=== PATIENT | male | born 1985 | race American Indian/Alaskan Native ===

== ENCOUNTER 2017-08-18 10:29 | Emergency (ER) | payer OTHER ==
[2017-08-18 10:35] VITALS: BP 134/81
[2017-08-18] MEDS ORDERED: Ondansetron 4 MG/2 ML SDV IVPUSH ONE (10:47)
[2017-08-18] MEDS ORDERED: Sodium Chloride 0.9% 1,000 ML IV SCH (11:00)
[2017-08-18] MEDS ORDERED: HYDROmorphone 1 MG/ML Syringe IVPUSH ONE (11:04)
--- NOTE | 2017-08-18 11:10 | EDM.PDOC ---
ED HPI GENERAL MEDICAL PROBLEM - General Chief Complaint: Abdominal Pain Stated Complaint: [facility] Time Seen by Provider: 08/18/17 10:55 Source of Information: Reports: Patient, Old Records (previous ER and hospital records) History Limitations: Reports: No Limitations - History of Present Illness INITIAL COMMENTS - FREE TEXT/NARRATIVE: 31-year-old male arrives from [facility] ambulance service for evaluation and treatment of abdominal pain. Reports abdominal pain has been present for the last 3 days. He states he did not seek help immediately as he knew what was and attempted to control his pain with diet. He states that he is only drink. Liquids yesterday not anything having and eats. He reports associated symptoms of nausea and vomiting. Reports that the abdominal pain is greatest in the lower abdomen and into the left flank. Also has abdominal pain present in the epigastric area. He attributes this to nausea and vomiting. Feels that he is constipated and has not had a bowel movement in several days. Patient has a history of diverticulitis. He feels he is having a flare of his diverticulitis today. States he has never had a colonoscopy. No previous surgeries to his abdomen. Review the patient's records showed that he has been seen in the ER on 3 other occasions for abdominal pain. He was treated twice for diverticulitis. He was admitted on one occasion. He is also known to have gallstones as seen on ultrasound. He has not has gallbladder out as instructed. He has not had an upper endoscopy or colonoscopy as instructed. Duration: Day(s): (3) Location: Reports: Abdomen Abdominal Pain Score (Numeric/FACES): 7 - Related Data Allergies Allergy/AdvReac Type Severity Reaction Status Date / Time No Known Allergies Allergy Verified 08/18/17 10:35 Home Meds: Home Meds Acetaminophen/oxyCODONE [Percocet 325-5 MG] 1 tab PO Q4HR PRN #20 tab 08/18/17 [ Rx] Levofloxacin [Levaquin] 750 mg PO DAILY #9 tab 08/18/17 [Rx] metroNIDAZOLE [Flagyl] 500 mg PO Q8H #29 tab 08/18/17 [Rx] Past Medical History - Past Health History Medical/Surgical History: Denies Medical/Surgical History Gastrointestinal History: Reports: Diverticulosis, Helicobacter Pylori Other Gastrointestinal History: gallstones-incidentally noted Endocrine/Metabolic History: Reports: Obesity/BMI 30+ - Past Surgical History Other Surgical History Comment: Patient denies previous surgical procedures. Social & Family History - Family History Family Medical History: Noncontributory - Tobacco Use Smoking Status *Q: Current Every Day Smoker Years of Tobacco use: 15 Packs/Tins Daily: 0.5 Used Tobacco, but Quit: Yes Month Tobacco Last Used: november Second Hand Smoke Exposure: No - Recreational Drug Use Recreational Drug Use: Yes Drug Use in Last 12 Months: Yes Recreational Drug Type: Reports: Marijuana/Hashish Recreational Drug Use Frequency: Rarely - Living Situation & Occupation Living situation: Reports: Single, Alone Occupation: Other ED ROS GENERAL - Review of Systems Review Of Systems: See Below Constitutional: Denies: Fever GI/Abdominal: Reports: Abdominal Pain, Constipation, Nausea, Vomiting : Reports: Frequency, Other (reports strong urine odor). Denies: Dysuria ED EXAM, GI/ABD - Physical Exam Exam: See Below Exam Limited By: No Limitations General Appearance: Alert, WD/WN, Moderate Distress, Obese Throat/Mouth: Normal Inspection, Normal Voice, No Airway Compromise Respiratory/Chest: No Respiratory Distress, Lungs Clear, Normal Breath Sounds Cardiovascular: Normal Peripheral Pulses, Regular Rate, Rhythm, No Murmur GI/Abdominal Exam: Soft, Tender (generalized, greatest in the left lower quadrant), Other (decreased bowel sounds) Neurological: Alert, Oriented, Normal Cognition Psychiatric: Normal Affect, Normal Mood Skin Exam: Warm, Dry, Normal Color Course - Vital Signs Last Recorded V/S: Last Vital Signs Temp 36.8 C 08/18/17 10:33 Pulse 73 08/18/17 10:33 Resp 18 08/18/17 10:33 BP 134/81 08/18/17 10:33 Pulse Ox 100 08/18/17 10:33 - Orders/Labs/Meds Orders: Active Orders 24 hr Category Date Time Status Insert Pool Catheter [Insert Urinary Catheter] [OM.PC] Care 08/18/17 14:45 Ordered Q24H Urinary Catheter Assessment [RC] ASDIRECTED Care 08/18/17 14:34 Active CULTURE URINE [RM] Stat Lab 08/18/17 13:40 Received Labs: Laboratory Tests 08/18/17 08/18/17 08/18/17 Range/Units 10:35 10:35 13:40 WBC 16.19 H (4.23-9.07) K/mm3 RBC 5.53 (4.63-6.08) M/mm3 Hgb 14.8 (13.7-17.5) gm/L Hct 44.8 (40.1-51.0) % MCV 81.0 (79.0-92.2) fl MCH 26.8 (25.7-32.2) pg MCHC 33.0 (32.2-35.5) g/dl RDW Std Deviation 39.5 (35.1-43.9) fL Plt Count 262 (163-337) K/mm3 MPV 10.9 (9.4-12.3) fl Neutrophils % (Manual) 66 H (40-60) % Band Neutrophils % 0 (0-10) % Lymphocytes % (Manual) 25 (20-40) % Atypical Lymphs % 0 % Monocytes % (Manual) 7 (2-10) % Eosinophils % (Manual) 2 (0.8-7.0) % Basophils % (Manual) 0 L (0.2-1.2) Platelet Estimate Adequate RBC Morph Comment Normal Sodium 141 (136-145) mEq/L Potassium 4.1 (3.5-5.1) mEq/L Chloride 106 (98-107) mEq/L Carbon Dioxide 27 (21-32) mEq/L Anion Gap 12.1 (5-15) BUN 13 (7-18) mg/dL Creatinine 0.9 (0.7-1.3) mg/dL Est Cr Clr Drug Dosing 134.40 mL/min Estimated GFR (MDRD) > 60 (>60) mL/min BUN/Creatinine Ratio 14.4 (14-18) Glucose 112 H (74-106) mg/dL Calcium 9.1 (8.5-10.1) mg/dL Total Bilirubin 0.5 (0.2-1.0) mg/dL AST 16 (15-37) U/L ALT 19 (16-63) U/L Alkaline Phosphatase 103 (46-116) U/L C-Reactive Protein 1.5 H* (<1.0) mg/dL Total Protein 8.7 H (6.4-8.2) g/dl Albumin 3.6 (3.4-5.0) g/dl Globulin 5.1 gm/dL Albumin/Globulin Ratio 0.7 L (1-2) Amylase 47 (25-115) U/L Lipase 79 (73-393) U/L Urine Color Yellow (Yellow) Urine Appearance Cloudy H (Clear) Urine pH 8.0 (5.0-8.0) Ur Specific [place] 1.020 (1.005-1.030) Urine Protein 2+ H (Negative) Urine Glucose (UA) Negative (Negative) Urine Ketones 1+ H (Negative) Urine Occult Blood Trace-lysed H (Negative) Urine Nitrite Negative (Negative) Urine Bilirubin Negative (Negative) Urine Urobilinogen 1.0 (0.2-1.0) Ur Leukocyte Esterase 1+ H (Negative) Urine RBC 0-5 (0-5) /hpf Urine WBC 40-50 H (0-5) /hpf Ur Epithelial Cells 0-5 (0-5) /hpf Amorphous Sediment Moderate H (NOT SEEN) /hpf Urine Bacteria Many H (FEW) /hpf Urine Mucus Few (FEW) /hpf Meds: Medications Discontinued Medications Generic Name Dose Route Start Last Admin Trade Name Freq PRN Reason Stop Dose Admin Diatrizoate Meglum/Diatrizoate Sod 90 ml 08/18/17 11:59 08/18/17 12:38 Gastrografin 37% PO 08/18/17 12:00 90 ml ONETIME ONE Administration Diatrizoate Meglumine 400 ml 08/18/17 15:00 08/18/17 15:56 Cystografin IURETH 08/18/17 15:01 400 ml ONETIME ONE Administration Hydromorphone HCl 1 mg 08/18/17 11:04 08/18/17 11:13 Dilaudid IVPUSH 08/18/17 11:05 1 mg ONETIME ONE Administration Sodium Chloride 1,000 mls @ 125 mls/hr 08/18/17 11:00 08/18/17 10:53 Normal Saline IV 125 mls/hr ASDIRECTED ARNOLD Administration Levofloxacin/Dextrose 750 mg/ 150 mls @ 100 mls/hr 08/18/17 12:52 08/18/17 13 :01 Premix IV 08/18/17 14:21 100 mls/hr ONETIME ONE Administration Metronidazole 500 mg/ Premix 100 mls @ 100 mls/hr 08/18/17 12:52 08/18/17 12: 59 IV 08/18/17 13:51 100 mls/hr ONETIME ONE Administration Iopamidol 150 ml 08/18/17 11:59 08/18/17 12:38 Isovue-300 (61%) IVPUSH 08/18/17 12:00 115 ml ONETIME ONE Administration Lidocaine HCl 10 ml 08/18/17 14:29 08/18/17 14:51 Xylocaine 2% Jelly MUCMEM 08/18/17 14:30 10 ml ONETIME ONE Administration Ondansetron HCl 4 mg 08/18/17 10:47 08/18/17 10:53 Zofran IVPUSH 08/18/17 10:48 4 mg ONETIME ONE Administration Sodium Chloride 10 ml 08/18/17 11:59 08/18/17 12:39 Saline Flush FLUSH 08/18/17 12:00 10 ml ONETIME ONE Administration - Radiology Interpretation Free Text/Narrative:: CT abdomen and pelvis Technique: Multiple axial sections were obtained from above the dome of the diaphragm inferiorly through the pubic symphysis. Intravenous and oral contrast was utilized. Delayed images were obtained through the bladder. Comparison: Prior CT abdomen and pelvis exam of 02/04/16. Findings: Inflammatory change is identified around a portion of the sigmoid colon. Diverticuli are seen within the sigmoid colon and findings are felt compatible with diverticulitis. There is air within the bladder which may be the result of a diverticular fistula. Visualized lung bases show nothing acute. Liver shows no focal parenchymal abnormality. Spleen appears normal limits. Adrenal glands show no nodule. Gallbladder contains no calcified gallstones. Kidneys show symmetric contrast enhancement without hydronephrosis or mass. Pancreas is within normal limits. Aorta shows no aneurysmal dilatation. No retroperitoneal adenopathy or mesenteric abnormalities are seen. Appendix is seen which is normal. No additional pelvic abnormality is seen. Impression: 1. Findings compatible with diverticulitis. Air within the bladder possibly caused by diverticular fistula. 2. No additional abnormality is identified on CT study of the abdomen and pelvis. - Re-Assessments/Exams Free Text/Narrative Re-Assessment/Exam: 08/18/17 13:04 Pain and nausea improved. Awaiting formal radiology read. Levaquin and flagyl ordered to treat for diverticulitis. 08/18/17 13:40 Patient is currently receiving the IV Levaquin. Radiology report returned. Findings are concerning for a fistula as there is free air in the bladder. Discussed this with the patient. He has not been catheterized recently. He has not yet given us a urine sample. Plan will be I will have him give us a urine sample and I will discuss case with the urologist in [place]. 08/18/17 14:[address] Persaud, urology in [place]. He also we culture the urine and obtain a CT cystogram. Dr. Ashby is not here at this time and is unable to perform a CT cystogram. Dr. Membreno spoke with Dr. Ashby. We will obtain a CT cystogram and AP and lateral views of the pelvis. Case discussed with Dr. Banda. He agrees with out work up thus far recommends and treating with antibiotics and follow-up with him for a colonsopy. 08/18/17 17:[address] Persaud back with results. Agrees with treatment plan. Will look at images and notify us if he sees anything concerning. Will plan to discharge patient home at this time. Departure - Departure Time of Disposition: 17:04 Disposition: Home, Self-Care 01 Condition: Fair Clinical Impression: Acute diverticulitis - Discharge Information Prescriptions: Acetaminophen/oxyCODONE [Percocet 325-5 MG] 1 tab PO Q4HR PRN #20 tab PRN Reason: Pain Levofloxacin [Levaquin] 750 mg PO DAILY #9 tab metroNIDAZOLE [Flagyl] 500 mg PO Q8H #29 tab Instructions: Diverticulitis Referrals: Misha Soares DO [Primary Care Provider] - Homer Banda MD [Physician] - Forms: ED Department Discharge Additional Instructions: You were given medication ER that can affect your ability to drive and operate machinery. Do not drive or operate machinery within 12 hours of taking prescription narcotic pain medication. Percocet 1-2 tabs every 4-6 hours as needed for severe pain. Do not drive or operate machinery within 12 hours of taking Percocet. Percocet can be habit- forming, I recommend you take as few these as needed to control your pain . Levaquin 1 tablet daily for 10 days. First dose was given in the ED. Start your perception tomorrow. Flagyl 1 tab 3 times a day for 10 days. first dose given here in the ER. Follow-up with Dr. Banda. Call [phone] Banda. Please return to the ER if your symptoms change or worsen. - My Orders Last 24 Hours: My Active Orders 08/18/17 13:40 CULTURE URINE [RM] Stat 08/18/17 14:34 Urinary Catheter Assessment [RC] ASDIRECTED 08/18/17 14:45 Insert Pool Catheter [Insert Urinary Catheter] [OM.PC] Q24H - Assessment/Plan Last 24 Hours: My Active Orders 08/18/17 13:40 CULTURE URINE [RM] Stat 08/18/17 14:34 Urinary Catheter Assessment [RC] ASDIRECTED 08/18/17 14:45 Insert Pool Catheter [Insert Urinary Catheter] [OM.PC] Q24H
[2017-08-18] MEDS ORDERED: Sodium Chloride 0.9% 10 ML Syringe FLUSH ONE (11:59)
[2017-08-18] MEDS ORDERED: Iopamidol 612 MG/ML 150 ML Bottle IVPUSH ONE (11:59)
[2017-08-18] MEDS ORDERED: Diatrizoate Meglumine/Diatrizoate Sodium 37% 120 ML Bottle PO ONE (11:59)
[2017-08-18] MEDS ORDERED: Levofloxacin/Dextrose 5%-Water 750 MG in Premix Bag 1 BAG IV ONE (12:52)
[2017-08-18] MEDS ORDERED: metroNIDAZOLE/Normal Saline 500 MG in Premix Bag 1 BAG IV ONE (12:52)
--- NOTE | 2017-08-18 14:23 | CT ---
CT abdomen and pelvis Technique: Multiple axial sections were obtained from above the dome of the diaphragm inferiorly through the pubic symphysis. Intravenous and oral contrast was utilized. Delayed images were obtained through the bladder. Comparison: Prior CT abdomen and pelvis exam of 02/04/16. Findings: Inflammatory change is identified around a portion of the sigmoid colon. Diverticuli are seen within the sigmoid colon and findings are felt compatible with diverticulitis. There is air within the bladder which may be the result of a diverticular fistula. Visualized lung bases show nothing acute. Liver shows no focal parenchymal abnormality. Spleen appears normal limits. Adrenal glands show no nodule. Gallbladder contains no calcified gallstones. Kidneys show symmetric contrast enhancement without hydronephrosis or mass. Pancreas is within normal limits. Aorta shows no aneurysmal dilatation. No retroperitoneal adenopathy or mesenteric abnormalities are seen. Appendix is seen which is normal. No additional pelvic abnormality is seen. Impression: 1. Findings compatible with diverticulitis. Air within the bladder possibly caused by diverticular fistula. 2. No additional abnormality is identified on CT study of the abdomen and pelvis. Diagnostic code #5
[2017-08-18] MEDS ORDERED: Lidocaine 2% Jelly 10 ML Urojet MUCMEM ONE (14:29)
[2017-08-18] MEDS ORDERED: DIATRIZOATE MEGLUMINE IURETH ONE (15:00)
[2017-08-18] MEDS ORDERED: WATER FOR IRRIGATION STERILE ONE (15:00)
[2017-08-18] MEDS ORDERED: Water For Irrigation,Sterile 1,000 ML Container SCH (16:00)
--- NOTE | 2017-08-18 16:13 | CR ---
Pelvis: 3 views of the pelvis are obtained. Study shows placement of contrast into the bladder. As mentioned on CT report, no extravasation of any contrast from the bladder is seen. Diagnostic code #2
--- NOTE | 2017-08-18 16:33 | CT ---
CT pelvis Technique: Multiple axial sections were obtained from above the iliac crests inferiorly to the pubic symphysis. Pool catheter is in place. Contrast noted within the bladder. Findings: Diverticulosis is again seen within the sigmoid colon. Air noted within the bladder. There is soft tissue protrusion into the dome of the bladder with a small amount of extraluminal gas being seen with more soft tissue inflammatory change extending to the sigmoid colon. Contrast noted within the sigmoid colon although uncertain if this is due to contrast from the bladder as there is contrast from oral administration from previous CT being seen in the same region. 2 view plain film study with contrast placed in the bladder does not show any extravasation from the bladder. Impression: 1. Findings still remain suspicious for a diverticular fistula as described above, however no contrast is seen to extend into this fistula to confirm. Limited barium enema study could be considered in the a.m. to further evaluate. Diagnostic code #3
== END 2017-08-18 17:25 | disposition home or self-care (01) ==
LOC: JD.ED 10:29
DX: K57.92 Diverticulitis of intestine, part unspecified, without perforation or abscess without bleeding (principal); F17.210 Nicotine dependence, cigarettes, uncomplicated
CPT/HCPCS: 36415; 51702; 72170; 72192; 74177; 80053; 81001; 82150; 83690; 85025; 86140; 87086; 96361; 96365; 96366; 96367; 96375; 99285; J1170; J1956; J2405; J7040; J7050; Q9958; Q9963; Q9967; 99284

== ENCOUNTER 2017-08-20 18:14 | Inpatient (IN) | payer OTHER ==
[2017-08-20] MEDS ORDERED: Sodium Chloride 0.9% 1,000 ML IV ONE ×2 (19:27→20:59)
--- NOTE | 2017-08-20 20:06 | EDM.PDOC ---
ED HPI GENERAL MEDICAL PROBLEM - General Chief Complaint: Abdominal Pain Stated Complaint: [facility] Time Seen by Provider: 08/20/17 19:15 Source of Information: Reports: Patient History Limitations: Reports: No Limitations - History of Present Illness INITIAL COMMENTS - FREE TEXT/NARRATIVE: This is a 31-year-old male. He was seen here on Wednesday for abdominal pain and diagnosed with an acute diverticulitis with a white count of 16. At the time to do the CT scan of his abdomen and there was a question as to whether he might have a diverticular fistula into the bladder since the bladder had air. Studies were done to determine if this was the case with CT cystogram they did not confirm a diverticular fistula. He was given Levaquin and Flagyl in the ER and then was sent home on Levaquin and Flagyl and Percocet. The patient states he has not been able to keep any fluids down or his medicines down since 8 AM this morning. He's been having increasing left lower quadrant and mid lower abdomen pain and he comes back to the ER for evaluation. He also states he has not been able to have a bowel movement since he left the ER 2 days ago but he's been having the nausea and vomiting. Before arrival to the ER he was given some Dilaudid IV and some Zofran that diminished his pain considerably before he arrived to the ER. He denies any fever at least documented though he's had some chills at times. He has been urinating but is been decreased today he indicates. It should be noted he tried to eat a club sandwich this afternoon and vomited back up. 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/IO, Other (see below) Other Treatments PRISON GUARD SUPERVISOR: IVF, dilaudid, zofran below umbilical/groin area Pain Score (Numeric/FACES): 3 - Related Data Allergies Allergy/AdvReac Type Severity Reaction Status Date / Time No Known Allergies Allergy Verified 08/20/17 18:28 Home Meds: Home Meds Acetaminophen/oxyCODONE [Percocet 325-5 MG] 1 tab PO Q4HR PRN #20 tab 08/18/17 [ Rx] metroNIDAZOLE [Flagyl] 500 mg PO Q8H #29 tab 08/18/17 [Rx] Past Medical History - Past Health History Medical/Surgical History: Denies Medical/Surgical History Gastrointestinal History: Reports: Diverticulosis, Helicobacter Pylori Other Gastrointestinal History: gallstones-incidentally noted Musculoskeletal History: Reports: Back Pain, Chronic Endocrine/Metabolic History: Reports: Obesity/BMI 30+ - Past Surgical History Other Surgical History Comment: Patient denies previous surgical procedures. Social & Family History - Family History Family Medical History: Noncontributory - Tobacco Use Smoking Status *Q: Current Some Day Smoker Years of Tobacco use: 5 Packs/Tins Daily: 0.1 Used Tobacco, but Quit: Yes Month Tobacco Last Used: november Second Hand Smoke Exposure: No - Caffeine Use Caffeine Use: Reports: None - Recreational Drug Use Recreational Drug Use: Yes Drug Use in Last 12 Months: Yes Recreational Drug Type: Reports: Marijuana/Hashish Recreational Drug Use Frequency: Daily Recreational Drug Last Use: 08/20/17 - Living Situation & Occupation Living situation: Reports: Single, Alone Occupation: Other ED ROS GENERAL - Review of Systems Review Of Systems: See Below Constitutional: Reports: Chills, Malaise. Denies: Fever HEENT: Reports: No Symptoms Respiratory: Denies: Shortness of Breath, Cough Cardiovascular: Reports: No Symptoms Endocrine: Reports: No Symptoms GI/Abdominal: Reports: Abdominal Pain, Anorexia, Nausea, Vomiting. Denies: Constipation, Diarrhea : Reports: No Symptoms Musculoskeletal: Reports: No Symptoms Skin: Reports: No Symptoms Neurological: Reports: No Symptoms Psychiatric: Reports: No Symptoms Hematologic/Lymphatic: Reports: No Symptoms ED EXAM, GI/ABD - Physical Exam Exam: See Below Exam Limited By: No Limitations General Appearance: Alert, WD/WN, No Apparent Distress Eyes: Bilateral: Normal Appearance Ears: Normal External Exam, Normal Canal, Normal TMs Nose: Normal Inspection Throat/Mouth: Normal Inspection, Normal Lips, Normal Oropharynx, Normal Voice, No Airway Compromise Head: Normocephalic Neck: Supple Respiratory/Chest: No Respiratory Distress, Lungs Clear, Normal Breath Sounds Cardiovascular: Regular Rate, Rhythm, No Murmur GI/Abdominal Exam: Soft, No Organomegaly, No Distention, Tender, Other (There are decreased bowel sounds noted, he is tender in the left lower quadrant but there is no rebound he is also tender midline down over the bladder area minimal right lower quadrant soreness no upper abdominal soreness noted) Back Exam: Full Range of Motion Extremities: Normal Inspection, Normal Range of Motion Neurological: Alert, Oriented Psychiatric: Normal Affect, Normal Mood Skin Exam: Warm, Dry Course - Vital Signs Last Recorded V/S: Last Vital Signs Temp 97.6 F 08/20/17 18:20 Pulse 62 08/20/17 18:20 Resp 18 08/20/17 18:20 BP 121/66 08/20/17 18:20 Pulse Ox 95 08/20/17 18:20 - Orders/Labs/Meds Orders: Active Orders 24 hr Category Date Time Status Ambulate [RC] QID Care 08/20/17 22:50 Active Height and Weight [RC] DAILY Care 08/20/17 22:38 Active Intake and Output [RC] QSHIFT Care 08/20/17 22:39 Active Oxygen Therapy [RC] PRN Care 08/20/17 22:38 Active RT Aerosol Therapy [RC] ASDIRECTED Care 08/20/17 22:40 Active Up With Assistance [RC] ASDIRECTED Care 08/20/17 22:38 Active Up ad Tiffany [RC] ASDIRECTED Care 08/20/17 22:38 Active VTE/DVT Education [RC] PER UNIT ROUTINE Care 08/20/17 22:38 Active Vital Signs [RC] Q4H Care 08/20/17 22:38 Active Consult to Pulpit Operator [CONS] Routine Cons 08/20/17 22:41 Active Nothing per Oral Now Diet [DIET] Diet 08/20/17 Dinner Active Abdomen 2V AP Flat Upright [CR] Stat Exams 08/20/17 19:27 Taken BASIC METABOLIC PANEL,BMP [CHEM] AM Lab 08/21/17 05:11 Ordered BASIC METABOLIC PANEL,BMP [CHEM] AM Lab 08/22/17 05:11 Ordered BASIC METABOLIC PANEL,BMP [CHEM] AM Lab 08/23/17 05:11 Ordered BASIC METABOLIC PANEL,BMP [CHEM] AM Lab 08/24/17 05:11 Ordered BASIC METABOLIC PANEL,BMP [CHEM] AM Lab 08/25/17 05:11 Ordered C-REACTIVE PROTEIN [CHEM] AM Lab 08/21/17 05:11 Ordered C-REACTIVE PROTEIN [CHEM] AM Lab 08/22/17 05:11 Ordered C-REACTIVE PROTEIN [CHEM] AM Lab 08/23/17 05:11 Ordered C-REACTIVE PROTEIN [CHEM] AM Lab 08/24/17 05:11 Ordered C-REACTIVE PROTEIN [CHEM] AM Lab 08/25/17 05:11 Ordered CBC WITH AUTO DIFF [HEME] AM Lab 08/21/17 05:11 Ordered CBC WITH AUTO DIFF [HEME] AM Lab 08/22/17 05:11 Ordered CBC WITH AUTO DIFF [HEME] AM Lab 08/23/17 05:11 Ordered CBC WITH AUTO DIFF [HEME] AM Lab 08/24/17 05:11 Ordered CBC WITH AUTO DIFF [HEME] AM Lab 08/25/17 05:11 Ordered CULTURE BLOOD [BC] Stat Lab 08/20/17 21:12 Received CULTURE BLOOD [BC] Stat Lab 08/20/17 21:23 Received MAGNESIUM [CHEM] AM Lab 08/21/17 05:11 Ordered MAGNESIUM [CHEM] AM Lab 08/22/17 05:11 Ordered MAGNESIUM [CHEM] AM Lab 08/23/17 05:11 Ordered MAGNESIUM [CHEM] AM Lab 08/24/17 05:11 Ordered MAGNESIUM [CHEM] AM Lab 08/25/17 05:11 Ordered Acetaminophen [Tylenol] Med 08/20/17 22:38 Active 650 mg PO Q4H PRN Albuterol/Ipratropium [DuoNeb 3.0-0.5 MG/3 ML] Med 08/20/17 22:38 Active 3 ml NEB Q4H PRN Bisacodyl [Dulcolax] Med 08/20/17 22:38 Active 5 mg PO DAILY PRN Dextrose 5%-0.9% NaCl with KCl [D5 NS with 20 mEq KCl] Med 08/20/17 22:45 Active 1,000 ml IV ASDIRECTED Docusate Sodium/Sennosides [Senna Plus] Med 08/20/17 22:38 Active 1 tab PO BID PRN Enoxaparin [Lovenox] Med 08/21/17 09:00 Active 40 mg SUBCUT DAILY HYDROmorphone [Dilaudid] Med 08/20/17 22:38 Active 1 mg IVPUSH Q6H PRN LORazepam [Ativan] Med 08/20/17 22:38 Active 1 mg IV Q6H PRN LORazepam [Ativan] Med 08/20/17 22:43 Active 2 mg IVPUSH Q4H PRN Levofloxacin/Dextrose 5%-Water [Levaquin in D5W 500 MG/ Med 08/21/17 09:00 Ordered 100 ML] 500 mg Premix Bag 1 bag IV Q24H Magnesium Hydroxide [Milk of Magnesia] Med 08/20/17 22:38 Active 30 ml PO Q12H PRN Magnesium Rep Pharmacy to Dose [Pharmacy to Dose - Med 08/20/17 22:45 Ordered Magnesium Replacement] 1 dose .XX ASDIRECTED Metoprolol Tartrate [Lopressor] Med 08/20/17 22:43 Active 5 mg IVPUSH Q4H PRN Nicotine [Habitrol] Med 08/21/17 09:00 Active 21 mg TRDERM DAILY Ondansetron [Zofran] Med 08/20/17 22:38 Active 4 mg IV Q4H PRN Polyethylene Glycol 3350 [MiraLAX] Med 08/20/17 22:38 Active 17 gm PO DAILY PRN Potassium Rep Pharmacy to Dose [Pharmacy to Dose - Med 08/20/17 22:45 Ordered Potassium Replacement] 1 dose .XX ASDIRECTED Promethazine [Phenergan] 12.5 mg Med 08/20/17 22:38 Active Sodium Chloride 0.9% [Normal Saline] 50 ml IV Q6H Saccharomyces Boulardii [Florastor] Med 08/21/17 09:00 Ordered 250 mg PO BID Temazepam [Restoril] Med 08/20/17 22:38 Active 30 mg PO BEDTIME PRN hydrALAZINE [Apresoline] Med 08/20/17 22:43 Active 20 mg IVPUSH Q4H PRN metroNIDAZOLE/Normal Saline [Flagyl 500 MG in NS 100 ML Med 08/21/17 05:30 Ordered ] 500 mg Premix Bag 1 bag IV Q8H oxyCODONE Med 08/20/17 22:38 Active 5 mg PO Q4H PRN Blood Culture x2 Reflex Set [OM.PC] Stat Oth 08/20/17 20:27 Ordered Resuscitation Status Routine Resus Stat 08/20/17 22:38 Ordered Medication Orders Acetaminophen (Tylenol) 650 mg PO Q4H PRN PRN Reason: Pain (Mild 1-3)/fever Albuterol/Ipratropium (Duoneb 3.0-0.5 Mg/3 Ml) 3 ml NEB Q4H PRN PRN Reason: Shortness Of Breath/wheezing Bisacodyl (Dulcolax) 5 mg PO DAILY PRN PRN Reason: Constipation Enoxaparin Sodium (Lovenox) 40 mg SUBCUT DAILY ARNOLD Hydralazine HCl (Apresoline) 20 mg IVPUSH Q4H PRN PRN Reason: Hypertension Hydromorphone HCl (Dilaudid) 1 mg IVPUSH Q6H PRN PRN Reason: Pain (severe 7-10) Promethazine HCl 12.5 mg/ (Sodium Chloride) 50.5 mls @ 100 mls/hr IV Q6H PRN PRN Reason: Nausea/Vomiting Potassium Chloride/Dextrose/Sod Cl (D5 Ns With 20 Meq Kcl) 1,000 mls @ 125 mls/ hr IV ASDIRECTED ARNOLD Levofloxacin/Dextrose 500 mg/ (Premix) 100 mls @ 100 mls/hr IV Q24H ARNOLD Metronidazole 500 mg/ Premix 100 mls @ 100 mls/hr IV Q8H ARNOLD Lorazepam (Ativan) 1 mg IV Q6H PRN PRN Reason: Anxiety Lorazepam (Ativan) 2 mg IVPUSH Q4H PRN PRN Reason: Seizures Magnesium Hydroxide (Milk Of Magnesia) 30 ml PO Q12H PRN PRN Reason: Constipation Magnesium Sulfate (Pharmacy To Dose - Magnesium Replacement) 1 dose .XX ASDIRECTED [facility] Metoprolol Tartrate (Lopressor) 5 mg IVPUSH Q4H PRN PRN Reason: Tachycardia Nicotine (Habitrol) 21 mg TRDERM DAILY [facility] Ondansetron HCl (Zofran) 4 mg IV Q4H PRN PRN Reason: Nausea/Vomiting Oxycodone HCl (Oxycodone) 5 mg PO Q4H PRN PRN Reason: Pain (moderate 4-6) Polyethylene Glycol (Miralax) 17 gm PO DAILY PRN PRN Reason: Constipation Potassium Chloride (Pharmacy To Dose - Potassium Replacement) 1 dose .XX ASDIRECTED [facility] Saccharomyces Boulardii (Florastor) 250 mg PO BID ARNOLD Senna/Docusate Sodium (Senna Plus) 1 tab PO BID PRN PRN Reason: Constipation Temazepam (Restoril) 30 mg PO BEDTIME PRN PRN Reason: Sleep Labs: Laboratory Tests 08/20/17 08/20/17 08/20/17 Range/Units 19:52 19:52 19:52 WBC 13.72 H (4.23-9.07) K/mm3 RBC 5.03 (4.63-6.08) M/mm3 Hgb 13.9 (13.7-17.5) gm/L Hct 40.9 (40.1-51.0) % MCV 81.3 (79.0-92.2) fl MCH 27.6 (25.7-32.2) pg MCHC 34.0 (32.2-35.5) g/dl RDW Std Deviation 38.8 (35.1-43.9) fL Plt Count 268 (163-337) K/mm3 MPV 10.7 (9.4-12.3) fl Neut % (Auto) 87.3 H (34.0-67.9) % Lymph % (Auto) 8.7 L (21.8-53.1) % Titus % (Auto) 3.5 L (5.3-12.2) % Eos % (Auto) 0 L (0.8-7.0) Baso % (Auto) 0.1 (0.1-1.2) % Neut # (Auto) 11.98 H (1.78-5.38) K/mm3 Lymph # (Auto) 1.20 L (1.32-3.57) K/mm3 Titus # (Auto) 0.48 (0.30-0.82) K/mm3 Eos # (Auto) 0.00 L (0.04-0.54) K/mm3 Baso # (Auto) 0.01 (0.01-0.08) K/mm3 Manual Slide Review Normal smear Sodium 139 (136-145) mEq/L Potassium 3.6 (3.5-5.1) mEq/L Chloride 105 (98-107) mEq/L Carbon Dioxide 26 (21-32) mEq/L Anion Gap 11.6 (5-15) BUN 9 (7-18) mg/dL Creatinine 0.7 (0.7-1.3) mg/dL Est Cr Clr Drug Dosing 172.80 mL/min Estimated GFR (MDRD) > 60 (>60) mL/min BUN/Creatinine Ratio 12.9 L (14-18) Glucose 107 H (74-106) mg/dL Lactic Acid (0.4-2.0) mmol/L Calcium 8.8 (8.5-10.1) mg/dL Total Bilirubin 0.4 (0.2-1.0) mg/dL AST 15 (15-37) U/L ALT 11 L (16-63) U/L Alkaline Phosphatase 91 (46-116) U/L C-Reactive Protein 3.3 H* (<1.0) mg/dL Total Protein 7.8 (6.4-8.2) g/dl Albumin 3.3 L (3.4-5.0) g/dl Globulin 4.5 gm/dL Albumin/Globulin Ratio 0.7 L (1-2) 08/20/17 Range/Units 21:23 WBC (4.23-9.07) K/mm3 RBC (4.63-6.08) M/mm3 Hgb (13.7-17.5) gm/L Hct (40.1-51.0) % MCV (79.0-92.2) fl MCH (25.7-32.2) pg MCHC (32.2-35.5) g/dl RDW Std Deviation (35.1-43.9) fL Plt Count (163-337) K/mm3 MPV (9.4-12.3) fl Neut % (Auto) (34.0-67.9) % Lymph % (Auto) (21.8-53.1) % Titus % (Auto) (5.3-12.2) % Eos % (Auto) (0.8-7.0) Baso % (Auto) (0.1-1.2) % Neut # (Auto) (1.78-5.38) K/mm3 Lymph # (Auto) (1.32-3.57) K/mm3 Titus # (Auto) (0.30-0.82) K/mm3 Eos # (Auto) (0.04-0.54) K/mm3 Baso # (Auto) (0.01-0.08) K/mm3 Manual Slide Review Sodium (136-145) mEq/L Potassium (3.5-5.1) mEq/L Chloride (98-107) mEq/L Carbon Dioxide (21-32) mEq/L Anion Gap (5-15) BUN (7-18) mg/dL Creatinine (0.7-1.3) mg/dL Est Cr Clr Drug Dosing mL/min Estimated GFR (MDRD) (>60) mL/min BUN/Creatinine Ratio (14-18) Glucose (74-106) mg/dL Lactic Acid 0.7 (0.4-2.0) mmol/L Calcium (8.5-10.1) mg/dL Total Bilirubin (0.2-1.0) mg/dL AST (15-37) U/L ALT (16-63) U/L Alkaline Phosphatase (46-116) U/L C-Reactive Protein (<1.0) mg/dL Total Protein (6.4-8.2) g/dl Albumin (3.4-5.0) g/dl Globulin gm/dL Albumin/Globulin Ratio (1-2) Meds: Medications Generic Name Dose Route Start Last Admin Trade Name Freq PRN Reason Stop Dose Admin Acetaminophen 650 mg 08/20/17 22:38 Tylenol PO Q4H PRN Pain (Mild 1-3)/fever Albuterol/Ipratropium 3 ml 08/20/17 22:38 Duoneb 3.0-0.5 Mg/3 Ml NEB Q4H PRN Shortness Of Breath/wheezing Bisacodyl 5 mg 08/20/17 22:38 Dulcolax PO DAILY PRN Constipation Enoxaparin Sodium 40 mg 08/21/17 09:00 Lovenox SUBCUT DAILY [facility] Hydralazine HCl 20 mg 08/20/17 22:43 Apresoline IVPUSH Q4H PRN Hypertension Hydromorphone HCl 1 mg 08/20/17 22:38 Dilaudid IVPUSH Q6H PRN Pain (severe 7-10) Promethazine HCl 12.5 mg/ 50.5 mls @ 100 mls/hr 08/20/17 22:38 Sodium Chloride IV Q6H PRN Nausea/Vomiting Potassium Chloride/Dextrose/Sod Cl 1,000 mls @ 125 mls/hr 08/20/17 22:45 D5 Ns With 20 Meq Kcl IV ASDIRECTED ARNOLD Levofloxacin/Dextrose 500 mg/ 100 mls @ 100 mls/hr 08/21/17 09:00 Premix IV Q24H ARNOLD Metronidazole 500 mg/ Premix 100 mls @ 100 mls/hr 08/21/17 05:30 IV Q8H ARNOLD Lorazepam 1 mg 08/20/17 22:38 Ativan IV Q6H PRN Anxiety Lorazepam 2 mg 08/20/17 22:43 Ativan IVPUSH Q4H PRN Seizures Magnesium Hydroxide 30 ml 08/20/17 22:38 Milk Of Magnesia PO Q12H PRN Constipation Magnesium Sulfate 1 dose 08/20/17 22:45 Pharmacy To Dose - Magnesium Replacement .XX ASDIRECTED [facility] Metoprolol Tartrate 5 mg 08/20/17 22:43 Lopressor IVPUSH Q4H PRN Tachycardia Nicotine 21 mg 08/21/17 09:00 Habitrol TRDERM DAILY [facility] Ondansetron HCl 4 mg 08/20/17 22:38 Zofran IV Q4H PRN Nausea/Vomiting Oxycodone HCl 5 mg 08/20/17 22:38 Oxycodone PO Q4H PRN Pain (moderate 4-6) Polyethylene Glycol 17 gm 08/20/17 22:38 Miralax PO DAILY PRN Constipation Potassium Chloride 1 dose 08/20/17 22:45 Pharmacy To Dose - Potassium Replacement .XX ASDIRECTED [facility] Saccharomyces Boulardii 250 mg 08/21/17 09:00 Florastor PO BID [facility] Senna/Docusate Sodium 1 tab 08/20/17 22:38 Senna Plus PO BID PRN Constipation Temazepam 30 mg 08/20/17 22:38 Restoril PO BEDTIME PRN Sleep Discontinued Medications Generic Name Dose Route Start Last Admin Trade Name Freq PRN Reason Stop Dose Admin Hydromorphone HCl 0.5 mg 08/20/17 21:29 08/20/17 21:49 Dilaudid IVPUSH 08/20/17 21:30 0.5 mg ONETIME ONE Administration Sodium Chloride 1,000 mls @ 999 mls/hr 08/20/17 19:27 08/20/17 19:31 Normal Saline IV 08/20/17 20:27 999 mls/hr ONETIME ONE Administration Sodium Chloride 1,000 mls @ 999 mls/hr 08/20/17 20:59 08/20/17 21:03 Normal Saline IV 08/20/17 21:59 999 mls/hr ONETIME ONE Administration Levofloxacin/Dextrose 750 mg/ 150 mls @ 100 mls/hr 08/20/17 21:24 08/20/17 21 :51 Premix IV 08/20/17 22:53 100 mls/hr ONETIME ONE Administration Metronidazole 500 mg/ Premix 100 mls @ 100 mls/hr 08/20/17 21:24 08/20/17 21: 45 IV 08/20/17 22:23 100 mls/hr ONETIME ONE Administration Ondansetron HCl 4 mg 08/20/17 20:58 08/20/17 21:06 Zofran IVPUSH 08/20/17 20:59 4 mg ONETIME STA Administration Pantoprazole Sodium 40 mg 08/20/17 22:38 Protonix Iv .XX 08/20/17 22:39 ONETIME ONE - Radiology Interpretation Free Text/Narrative:: Flat and upright x-ray does not suggest any perforation or air underneath the diaphragm there is no obvious obstructive pattern noted - Re-Assessments/Exams Free Text/Narrative Re-Assessment/Exam: 08/20/17 20:41 White count is 13.7 with a left shift, his CMP appears to be within normal limits. However since this is his second visit for pain and he has not been able to keep much down over the last 24 hours I believe would be best to admit him either to the hospital or to observation for IV antibiotics. 08/20/17 22:13 Patient has been doing well in the ER he did have a resurgence of nausea and abdominal pain for which we gave him some medication. He did get Levaquin 750 and Flagyl 500 IV. His C-reactive protein was 3.3 whereas the last time he was here a couple of days ago was 1.5. His lactic acid is 0.7 and normal. 08/20/17 22:[address] Snell and he will come to the ER to see the patient for further evaluation and treatment. Departure - Departure Time of Disposition: 22:13 Disposition: Admitted As Inpatient 66 Condition: Fair Clinical Impression: Acute diverticulitis, Abdominal pain, left lower quadrant Nausea and vomiting Qualifiers: Vomiting type: unspecified Vomiting Intractability: non-intractable Qualified Code(s): R11.2 - Nausea with vomiting, unspecified Diarrhea Qualifiers: Diarrhea type: unspecified type Qualified Code(s): R19.7 - Diarrhea, unspecified - Discharge Information Additional Instructions: I spoke to Dr. Snell and he will see the patient in the ER for further evaluation and treatment ED Communication - ED Communication Date/Time Date: 08/20/17 Time Called: 22:15 - Discussed Case With (1) Person/s Notified (1): Edward Snell (He will see the patient in the ER for evaluation and treatment) - My Orders Last 24 Hours: My Active Orders 08/20/17 19:27 Abdomen 2V AP Flat Upright [CR] Stat 08/20/17 20:27 Blood Culture x2 Reflex Set [OM.PC] Stat 08/20/17 21:12 CULTURE BLOOD [BC] Stat 08/20/17 21:23 CULTURE BLOOD [BC] Stat - Assessment/Plan Last 24 Hours: My Active Orders 08/20/17 19:27 Abdomen 2V AP Flat Upright [CR] Stat 08/20/17 20:27 Blood Culture x2 Reflex Set [OM.PC] Stat 08/20/17 21:12 CULTURE BLOOD [BC] Stat 08/20/17 21:23 CULTURE BLOOD [BC] Stat
[2017-08-20] MEDS ORDERED: Ondansetron 4 MG/2 ML SDV IVPUSH STA (20:58)
[2017-08-20] MEDS ORDERED: Levofloxacin/Dextrose 5%-Water 750 MG in Premix Bag 1 BAG IV ONE (21:24)
[2017-08-20] MEDS ORDERED: metroNIDAZOLE/Normal Saline 500 MG in Premix Bag 1 BAG IV ONE (21:24)
[2017-08-20] MEDS ORDERED: HYDROmorphone 0.5 MG/0.5 ML Syringe IVPUSH ONE (21:29)
--- NOTE | 2017-08-20 22:28 | PCM.HP ---
H&P History of Present Illness - General Date of Service: 08/20/17 Admit Problem/Dx: Acute Diverticulitis Source of Information: Patient, Old Records, Provider, RN Notes Reviewed History Limitations: Reports: No Limitations - History of Present Illness Initial Comments - Free Text/Narative: This is a 31 yo male with past medical hx/o diverticulosis, H. pylori infection, chronic back pain, and morbid obesity with a BMI of 42 who comes in with complaints of worsening abdominal pain. Patient was initially evaluated in the emergency department a couple of days ago and he was diagnosed with sigmoid diverticulitis. He was discharged with oral Levaquin and Flagyl along with Percocet for pain control. Unfortunately his symptom did not improve. Patient has not been able to keep anything down including his medications. He reports increasing left lower quadrant and mid lower abdominal pain which prompted him to come back for further evaluation. His last bowel movement was 2 days ago. He reports associated nausea and vomiting. He denies any signs of systemic infections but admits to some chills. His initial workup in the emergency department shows a CBC remarkable for WBC of 13.72, neutrophils of 87.2%, lymphocytes of 8.7%, and monocytes of 2.5%. His chemistry is remarkable for glucose of 107, ALT of 11, CRP of 3.8, and albumin of 3.3. His lactic acid is 0.7. Patient is being admitted for medical management of acute diverticulitis. He is full code. below umbilical/groin area Pain Score (Numeric/FACES): 3 - Related Data Allergies/Adverse Reactions: Allergies Allergy/AdvReac Type Severity Reaction Status Date / Time No Known Allergies Allergy Verified 08/21/17 01:46 Home Medications: Home Meds Acetaminophen/oxyCODONE [Percocet 325-5 MG] 1 tab PO Q4HR PRN #20 tab 08/18/17 [ Rx] metroNIDAZOLE [Flagyl] 500 mg PO Q8H #29 tab 08/18/17 [Rx] Past Medical History - Past Health History Medical/Surgical History: Denies Medical/Surgical History Gastrointestinal History: Reports: Diverticulosis, Helicobacter Pylori Other Gastrointestinal History: gallstones-incidentally noted Musculoskeletal History: Reports: Back Pain, Chronic Endocrine/Metabolic History: Reports: Obesity/BMI 30+ - Past Surgical History Other Surgical History Comment: Patient denies previous surgical procedures. Social & Family History - Family History Family Medical History: Noncontributory - Tobacco Use Smoking Status *Q: Current Some Day Smoker Years of Tobacco use: 5 Packs/Tins Daily: 0.1 Used Tobacco, but Quit: Yes Month Tobacco Last Used: november Second Hand Smoke Exposure: No - Caffeine Use Caffeine Use: Reports: None - Recreational Drug Use Recreational Drug Use: Yes Drug Use in Last 12 Months: Yes Recreational Drug Type: Reports: Marijuana/Hashish Recreational Drug Use Frequency: Daily Recreational Drug Last Use: 08/20/17 - Living Situation & Occupation Living situation: Reports: Single, Alone Occupation: Other H&P Review of Systems - Review of Systems: Review Of Systems: See Below General: Reports: Chills, Decreased Appetite. Denies: Fever, Fatigue HEENT: Reports: No Symptoms Pulmonary: Denies: Shortness of Breath, Cough Cardiovascular: Denies: Chest Pain, Palpitations, Dyspnea on Exertion, Lightheadedness Gastrointestinal: Reports: Abdominal Pain, Anorexia, Flatus, Nausea, Vomiting. Denies: Constipation, Diarrhea, Difficulty Swallowing, Distension Genitourinary: Reports: No Symptoms Musculoskeletal: Reports: No Symptoms Skin: Denies: Cyanosis, Mottled, Pallor, Diaphoresis, Rash Psychiatric: Denies: Depression, Anxiety, Hallucinations, Suicidal Ideation, Homicidal Ideation, Hallucinations (Auditory) Neurological: Denies: Confusion, Difficulty Walking, Weakness, Gait Disturbance Hematologic/Lymphatic: Reports: No Symptoms Immunologic: Reports: No Symptoms Exam - Exam Exam: See Below - Vital Signs Vital Signs: Last Vital Signs Temp 36.4 C 08/20/17 18:20 Pulse 62 08/20/17 18:20 Resp 18 08/20/17 18:20 BP 121/66 08/20/17 18:20 Pulse Ox 95 08/20/17 18:20 Weight: 145.15 kg - Exam General: Alert, Oriented, Cooperative, Mild Distress HEENT: Conjunctiva Clear, EACs Clear, EOMI, Mucosa Moist & [place], Nares Patent, Posterior Pharynx Clear, Pupils Equal, Pupils Reactive Neck: Supple, Trachea Midline, Full Range of Motion, Other (short and thick). No: JVD Lungs: Clear to Auscultation, Normal Respiratory Effort Cardiovascular: Regular Rate, Regular Rhythm GI/Abdominal Exam: Soft, No Organomegaly, No Distention, No Abnormal Bruit, No Mass, Tender (left lower quadrant), Abnormal Bowel Sounds, Other (Obese with Abdominal Striae and numerous cutaneous skin lesions) (Male) Exam: Deferred Rectal (Males) Exam: Deferred Back Exam: Normal Inspection, Decreased Range of Motion Extremities: Normal Inspection, Normal Range of Motion, Non-Tender, No Pedal Edema, Normal Capillary Refill Peripheral Pulses: 3+: Posterior Tibial (L), Posterior Tibial (R), Dorsalis Pedis (L), Dorsalis Pedis (R) Skin: Warm, Dry, Intact, Other (tattoos on both upper extremity ) Neuro Extensive - Mental Status: Oriented x3, Normal Cognition, Memory Intact Neuro Extensive - Motor, Sensory, Reflexes: CN II-XII Intact, Normal Gait Psychiatric: Alert, Normal Affect, Normal Mood - Patient Data Lab Results Last 24 hrs: Laboratory Results - last 24 hr 08/20/17 08/20/17 08/20/17 Range/Units 19:52 19:52 19:52 WBC 13.72 H (4.23-9.07) K/mm3 RBC 5.03 (4.63-6.08) M/mm3 Hgb 13.9 (13.7-17.5) gm/L Hct 40.9 (40.1-51.0) % MCV 81.3 (79.0-92.2) fl MCH 27.6 (25.7-32.2) pg MCHC 34.0 (32.2-35.5) g/dl RDW Std Deviation 38.8 (35.1-43.9) fL Plt Count 268 (163-337) K/mm3 MPV 10.7 (9.4-12.3) fl Neut % (Auto) 87.3 H (34.0-67.9) % Lymph % (Auto) 8.7 L (21.8-53.1) % [place] % (Auto) 3.5 L (5.3-12.2) % Eos % (Auto) 0 L (0.8-7.0) Baso % (Auto) 0.1 (0.1-1.2) % Neut # (Auto) 11.98 H (1.78-5.38) K/mm3 Lymph # (Auto) 1.20 L (1.32-3.57) K/mm3 [place] # (Auto) 0.48 (0.30-0.82) K/mm3 Eos # (Auto) 0.00 L (0.04-0.54) K/mm3 Baso # (Auto) 0.01 (0.01-0.08) K/mm3 Manual Slide Review Normal smear Sodium 139 (136-145) mEq/L Potassium 3.6 (3.5-5.1) mEq/L Chloride 105 (98-107) mEq/L Carbon Dioxide 26 (21-32) mEq/L Anion Gap 11.6 (5-15) BUN 9 (7-18) mg/dL Creatinine 0.7 (0.7-1.3) mg/dL Est Cr Clr Drug Dosing 172.80 mL/min Estimated GFR (MDRD) > 60 (>60) mL/min BUN/Creatinine Ratio 12.9 L (14-18) Glucose 107 H (74-106) mg/dL Lactic Acid (0.4-2.0) mmol/L Calcium 8.8 (8.5-10.1) mg/dL Total Bilirubin 0.4 (0.2-1.0) mg/dL AST 15 (15-37) U/L ALT 11 L (16-63) U/L Alkaline Phosphatase 91 (46-116) U/L C-Reactive Protein 3.3 H* (<1.0) mg/dL Total Protein 7.8 (6.4-8.2) g/dl Albumin 3.3 L (3.4-5.0) g/dl Globulin 4.5 gm/dL Albumin/Globulin Ratio 0.7 L (1-2) 08/20/17 Range/Units 21:23 WBC (4.23-9.07) K/mm3 RBC (4.63-6.08) M/mm3 Hgb (13.7-17.5) gm/L Hct (40.1-51.0) % MCV (79.0-92.2) fl MCH (25.7-32.2) pg MCHC (32.2-35.5) g/dl RDW Std Deviation (35.1-43.9) fL Plt Count (163-337) K/mm3 MPV (9.4-12.3) fl Neut % (Auto) (34.0-67.9) % Lymph % (Auto) (21.8-53.1) % [place] % (Auto) (5.3-12.2) % Eos % (Auto) (0.8-7.0) Baso % (Auto) (0.1-1.2) % Neut # (Auto) (1.78-5.38) K/mm3 Lymph # (Auto) (1.32-3.57) K/mm3 [place] # (Auto) (0.30-0.82) K/mm3 Eos # (Auto) (0.04-0.54) K/mm3 Baso # (Auto) (0.01-0.08) K/mm3 Manual Slide Review Sodium (136-145) mEq/L Potassium (3.5-5.1) mEq/L Chloride (98-107) mEq/L Carbon Dioxide (21-32) mEq/L Anion Gap (5-15) BUN (7-18) mg/dL Creatinine (0.7-1.3) mg/dL Est Cr Clr Drug Dosing mL/min Estimated GFR (MDRD) (>60) mL/min BUN/Creatinine Ratio (14-18) Glucose (74-106) mg/dL Lactic Acid 0.7 (0.4-2.0) mmol/L Calcium (8.5-10.1) mg/dL Total Bilirubin (0.2-1.0) mg/dL AST (15-37) U/L ALT (16-63) U/L Alkaline Phosphatase (46-116) U/L C-Reactive Protein (<1.0) mg/dL Total Protein (6.4-8.2) g/dl Albumin (3.4-5.0) g/dl Globulin gm/dL Albumin/Globulin Ratio (1-2) Result Diagrams: 08/21/17 05:38 08/21/17 05:38 *Q Meaningful Use (ADM) - VTE *Q VTE Criteria *Q: - Stroke *Q Stroke Criteria *Q: - AMI *Q AMI Criteria *Q: Problem List Initiated/Reviewed/Updated: Yes Orders Last 24hrs: Active Orders 24 hr Category Date Time Status Abdomen 2V AP Flat Upright [CR] Stat Exams 08/20/17 19:27 Taken CULTURE BLOOD [BC] Stat Lab 08/20/17 21:12 Received CULTURE BLOOD [BC] Stat Lab 08/20/17 21:23 Received Levofloxacin/Dextrose 5%-Water [Levaquin in D5W 750 MG/ Med 08/20/17 21:24 Active 150 ML] 750 mg Premix Bag 1 bag IV ONETIME Blood Culture x2 Reflex Set [OM.PC] Stat Oth 08/20/17 20:27 Ordered Medication Orders Levofloxacin/Dextrose 750 mg/ (Premix) 150 mls @ 100 mls/hr IV ONETIME ONE Stop: 08/20/17 22:53 Last Admin: 08/20/17 21:51 Dose: 100 mls/hr Assessment/Plan Comment:: I/P: Acute: Diverticulitis -Hx/o diverticulits 4 years ago -No Hx/o IBD or auto-immune disease -Failed outpatient treatment; seen in ED a couple of days ago -Came back for no improvement of symptoms -Afebrile w/ mild leukocytosis -CT scan 08/08/2017: sigmoid colon diverticulitis -WBC 13.72, CRP 3.3 -No reports of colonoscopy in the past -Levaquin 500 mg IV Q24hr and Flagyl 500 mg IV Q6 -Probiotic BID -NPO except ice chips, water sips, and meds -Ambulate as tolerated -IV fluids, Pain medications, and Anti-emetics for symptomatic control Air fluid In the Bladder on Recent CT scan -Query Cysto-sigmoid fistula -He carries no hx/o IBD -ED note states CT Cystogram was negative Chronic: Back Pain Substance Abuse Hx/o Gallstones Hx/o Diverticulosis Hx/o H. Pylori Infection Obesity with BMI of 42.2 Plan: Admit to medical floor Resume Home Meds if there are any Routine AM Labs DVT/PE prophylaxis: Lovenox CM for discharge planning Additional orders as above Home meds as ordered Code status: full code
[2017-08-20] MEDS ORDERED: oxyCODONE 5 MG Tab PO PRN (22:38)
[2017-08-20] MEDS ORDERED: Promethazine 12.5 MG in Sodium Chloride 0.9% 50 ML IV PRN (22:38)
[2017-08-20] MEDS ORDERED: Bisacodyl 5 MG Tab PO PRN (22:38)
[2017-08-20] MEDS ORDERED: Magnesium Hydroxide 400 MG/5 ML Susp 30 ML Cup PO PRN (22:38)
[2017-08-20] MEDS ORDERED: Polyethylene Glycol 3350 Powder 17 GM Packet PO PRN (22:38)
[2017-08-20] MEDS ORDERED: HYDROmorphone 1 MG/ML Syringe IVPUSH PRN (22:38)
[2017-08-20] MEDS ORDERED: Acetaminophen 325 MG Tab PO PRN (22:38)
[2017-08-20] MEDS ORDERED: Temazepam 15 MG Cap PO PRN (22:38)
[2017-08-20] MEDS ORDERED: Pantoprazole 40 MG Vial ONE (22:38)
[2017-08-20] MEDS ORDERED: Ondansetron 4 MG/2 ML SDV IV PRN (22:38)
[2017-08-20] MEDS ORDERED: Albuterol/Ipratropium 3.0-0.5 MG/3 ML Neb Soln NEB PRN (22:38)
[2017-08-20] MEDS ORDERED: LORazepam 2 MG/ML MDV IV PRN (22:38)
[2017-08-20] MEDS ORDERED: Metoprolol Tartrate 5 MG/5 ML SDV IVPUSH PRN (22:43)
[2017-08-20] MEDS ORDERED: LORazepam 2 MG/ML MDV IVPUSH PRN (22:43)
[2017-08-20] MEDS ORDERED: hydrALAZINE 20 MG/ML SDV IVPUSH PRN (22:43)
[2017-08-20] MEDS ORDERED: Scopolamine 1 MG Transdermal Patch TRDERM PRN (22:59)
[2017-08-20] MEDS: Dextrose 5%-0.9% NaCl with KCl 1,000 ML IV SCH (23:48)
[2017-08-21] MEDS: Potassium Chloride 100 ML IV SCH ×4 (00:52→04:17)
[2017-08-21] MEDS: metroNIDAZOLE/Normal Saline 500 MG in Premix Bag 1 BAG IV SCH ×3 (04:32→21:33)
--- NOTE | 2017-08-21 08:15 | PCM.PN ---
- General Info Date of Service: 08/21/17 Admission Dx/Problem (Free Text): Acute Diverticulitis Subjective Update: Follow Up Functional Status: Reports: Pain Controlled, Tolerating Diet, Ambulating, Urinating. Denies: New Symptoms - Review of Systems General: Denies: Fever, Weakness, Fatigue, Malaise, Chills HEENT: Reports: No Symptoms Pulmonary: Denies: Shortness of Breath Cardiovascular: Denies: Chest Pain Gastrointestinal: Reports: Flatus. Denies: Abdominal Pain, Constipation, Decreased Appetite, Diarrhea, Difficulty Swallowing, Melena, Nausea, Vomiting Genitourinary: Reports: No Symptoms Musculoskeletal: Reports: No Symptoms Skin: Denies: Cyanosis, Jaundice, Pallor, Diaphoresis, Rash Neurological: Denies: Confusion, Difficulty Walking, Weakness, Gait Disturbance Psychiatric: Denies: Depression, Anxiety, Agitation, Cravings, Hallucinations, Suicidal Ideation Systems Review Comment:: No overnight or acute issues. He slept pretty good. His pain is controlled. He reports no complaints this am. He is afebrile with improved leukocytosis. - Patient Data Vitals - Most Recent: Last Vital Signs Temp 36.6 C 08/21/17 04:16 Pulse 67 08/21/17 04:16 Resp 14 08/21/17 04:16 BP 134/92 H 08/21/17 04:16 Pulse Ox 94 L 08/21/17 04:16 Weight - Most Recent: 143.653 kg I&O - Last 24 Hours: Intake & Output 08/20/17 08/21/17 08/21/17 22:59 06:59 14:59 Intake Total 1036 Balance 1036 Lab Results Last 24 Hours: Laboratory Results - last 24 hr 08/21/17 08/21/17 Range/Units 05:38 05:38 WBC 10.91 H (4.23-9.07) K/mm3 RBC 4.50 L (4.63-6.08) M/mm3 Hgb 12.2 L (13.7-17.5) gm/L Hct 37.2 L (40.1-51.0) % MCV 82.7 (79.0-92.2) fl MCH 27.1 (25.7-32.2) pg MCHC 32.8 (32.2-35.5) g/dl RDW Std Deviation 39.6 (35.1-43.9) fL Plt Count 236 (163-337) K/mm3 MPV 11.1 (9.4-12.3) fl Neut % (Auto) 63.7 (34.0-67.9) % Lymph % (Auto) 25.9 (21.8-53.1) % [place] % (Auto) 9.0 (5.3-12.2) % Eos % (Auto) 0.9 (0.8-7.0) Baso % (Auto) 0.2 (0.1-1.2) % Neut # (Auto) 6.95 H (1.78-5.38) K/mm3 Lymph # (Auto) 2.83 (1.32-3.57) K/mm3 [place] # (Auto) 0.98 H (0.30-0.82) K/mm3 Eos # (Auto) 0.10 (0.04-0.54) K/mm3 Baso # (Auto) 0.02 (0.01-0.08) K/mm3 Sodium 143 (136-145) mEq/L Potassium 3.7 (3.5-5.1) mEq/L Chloride 109 H (98-107) mEq/L Carbon Dioxide 26 (21-32) mEq/L Anion Gap 11.7 (5-15) BUN 7 (7-18) mg/dL Creatinine 0.8 (0.7-1.3) mg/dL Est Cr Clr Drug Dosing 151.20 mL/min Estimated GFR (MDRD) > 60 (>60) mL/min BUN/Creatinine Ratio 8.8 L (14-18) Glucose 104 (74-106) mg/dL Calcium 8.2 L (8.5-10.1) mg/dL Magnesium 1.9 (1.8-2.4) mg/dl C-Reactive Protein 2.1 H* (<1.0) mg/dL Med Orders - Current: Current Medications Acetaminophen (Tylenol) 650 mg PO Q4H PRN PRN Reason: Pain (Mild 1-3)/fever Albuterol/Ipratropium (Duoneb 3.0-0.5 Mg/3 Ml) 3 ml NEB Q4H PRN PRN Reason: Shortness Of Breath/wheezing Bisacodyl (Dulcolax) 5 mg PO DAILY PRN PRN Reason: Constipation Enoxaparin Sodium (Lovenox) 40 mg SUBCUT DAILY [facility] Hydralazine HCl (Apresoline) 20 mg IVPUSH Q4H PRN PRN Reason: Hypertension Hydromorphone HCl (Dilaudid) 1 mg IVPUSH Q6H PRN PRN Reason: Pain (severe 7-10) Last Admin: 08/21/17 04:28 Dose: 1 mg Promethazine HCl 12.5 mg/ (Sodium Chloride) 50.5 mls @ 100 mls/hr IV Q6H PRN PRN Reason: Nausea/Vomiting Potassium Chloride/Dextrose/Sod Cl (D5 Ns With 20 Meq Kcl) 1,000 mls @ 125 mls/ hr IV ASDIRECTED [facility] Last Admin: 08/20/17 23:48 Dose: 125 mls/hr Levofloxacin/Dextrose 500 mg/ (Premix) 100 mls @ 100 mls/hr IV Q24H [facility] Metronidazole 500 mg/ Premix 100 mls @ 100 mls/hr IV Q8H [facility] Last Admin: 08/21/17 04:32 Dose: 100 mls/hr Influenza Virus Vaccine (Flulaval Quad [id number]) 60 mcg IM .ONCE ONE Stop: 08/21/17 10:01 Lorazepam (Ativan) 1 mg IV Q6H PRN PRN Reason: Anxiety Lorazepam (Ativan) 2 mg IVPUSH Q4H PRN PRN Reason: Seizures Magnesium Hydroxide (Milk Of Magnesia) 30 ml PO Q12H PRN PRN Reason: Constipation Magnesium Sulfate (Pharmacy To Dose - Magnesium Replacement) 1 dose .XX ASDIRECTED [facility] Metoprolol Tartrate (Lopressor) 5 mg IVPUSH Q4H PRN PRN Reason: Tachycardia Miscellaneous Information (Remove Patch) 1 ea TRDERM DAILY [facility] Nicotine (Habitrol) 21 mg TRDERM DAILY [facility] Ondansetron HCl (Zofran) 4 mg IV Q4H PRN PRN Reason: Nausea/Vomiting Oxycodone HCl (Oxycodone) 5 mg PO Q4H PRN PRN Reason: Pain (moderate 4-6) Polyethylene Glycol (Miralax) 17 gm PO DAILY PRN PRN Reason: Constipation Potassium Chloride (Pharmacy To Dose - Potassium Replacement) 1 dose .XX ASDIRECTED [facility] Saccharomyces Boulardii (Florastor) 250 mg PO BID [place] Scopolamine (Scopolamine) 1 each TRDERM Q72H PRN PRN Reason: Nausea/Vomiting Senna/Docusate Sodium (Senna Plus) 1 tab PO BID PRN PRN Reason: Constipation Temazepam (Restoril) 30 mg PO BEDTIME PRN PRN Reason: Sleep Discontinued Medications Hydromorphone HCl (Dilaudid) 0.5 mg IVPUSH ONETIME ONE Stop: 08/20/17 21:30 Last Admin: 08/20/17 21:49 Dose: 0.5 mg Sodium Chloride (Normal Saline) 1,000 mls @ 999 mls/hr IV ONETIME ONE Stop: 08/20/17 20:27 Last Admin: 08/20/17 19:31 Dose: 999 mls/hr Sodium Chloride (Normal Saline) 1,000 mls @ 999 mls/hr IV ONETIME ONE Stop: 08/20/17 21:59 Last Admin: 08/20/17 21:03 Dose: 999 mls/hr Levofloxacin/Dextrose 750 mg/ (Premix) 150 mls @ 100 mls/hr IV ONETIME ONE Stop: 08/20/17 22:53 Last Admin: 08/20/17 21:51 Dose: 100 mls/hr Metronidazole 500 mg/ Premix 100 mls @ 100 mls/hr IV ONETIME ONE Stop: 08/20/17 22:23 Last Admin: 08/20/17 21:45 Dose: 100 mls/hr Potassium Chloride (Kcl 10 Meq In Water 100 Ml) 100 mls @ 100 mls/hr IV Q1H [facility] Stop: 08/21/17 04:59 Last Admin: 08/21/17 04:17 Dose: 100 mls/hr Influenza Virus Vaccine (Pharmacy To Dose - Influenza Vaccine) 1 each IM ONETIME ONE Stop: 08/21/17 01:26 Ondansetron HCl (Zofran) 4 mg IVPUSH ONETIME STA Stop: 08/20/17 20:59 Last Admin: 08/20/17 21:06 Dose: 4 mg Pantoprazole Sodium (Protonix Iv) 40 mg .XX ONETIME ONE Stop: 08/20/17 22:39 Last Admin: 08/20/17 23:48 Dose: 40 mg - Exam General: Alert, Oriented, Cooperative, No Acute Distress, Other (Morbidly Obese) HEENT: Pupils Equal, Pupils Reactive, EOMI, Mucous Membr. Moist/[place] Neck: Supple, Trachea Midline, No JVD, No Thyromegaly, Other (short and thick) Lungs: Clear to Auscultation, Normal Respiratory Effort Cardiovascular: Regular Rate, Regular Rhythm GI/Abdominal Exam: Normal Bowel Sounds, Soft, Non-Tender, No Organomegaly, No Distention, No Abnormal Bruit, No Mass, Other (Noted for abdominal striations and multiple circular like lesions ). No: Guarding, Rigid, Rebound (Male) Exam: Deferred Back Exam: Normal Inspection, Decreased Range of Motion Extremities: Normal Inspection, Normal Range of Motion, Non-Tender, No Pedal Edema, Normal Capillary Refill Peripheral Pulses: 3+: Posterior Tibial (L), Posterior Tibial (R), Dorsalis Pedis (L), Dorsalis Pedis (R) Skin: Warm, Dry, Intact Neurological: No New Focal Deficit Psy/Mental Status: Alert, Normal Affect, Normal Mood - Problem List Review Problem List Initiated/Reviewed/Updated: Yes - My Orders Last 24 Hours: My Active Orders 08/20/17 22:59 Scopolamine 1 each TRDERM Q72H PRN 08/21/17 09:00 Remove Patch 1 ea TRDERM DAILY 08/21/17 10:00 FLU Vacc [id number](6MOS UP)/PF [Flulaval Quad [id number]] 60 mcg IM .ONCE ONE - Plan Plan:: I/P: Acute: Diverticulitis -Hx/o diverticulits 4 years ago -No Hx/o IBD or auto-immune disease -Failed outpatient treatment; seen in ED a couple of days ago -Came back for no improvement of symptoms -Afebrile w/ mild leukocytosis -CT scan 08/08/2017: sigmoid colon diverticulitis -WBC 13.72--> 10.91, CRP 3.3--> 2.1 -No reports of colonoscopy in the past -Levaquin 500 mg IV Q24hr and Flagyl 500 mg IV Q6 -Probiotic BID -Start clear liquids and advanced as tolerated -Ambulate as tolerated -IV fluids, Pain medications, and Anti-emetics for symptomatic control Air fluid In the Bladder on Recent CT scan -Query Cysto-sigmoid fistula -He carries no hx/o IBD -ED note states CT Cystogram was negative Chronic: Back Pain Substance Abuse Hx/o Gallstones Hx/o Diverticulosis Hx/o H. Pylori Infection Obesity with BMI of 42.2 Plan: He is clinically stable Continue current treatment Routine AM Labs DVT/PE prophylaxis: Lovenox CM for discharge planning Encourage to ambulated as tolerated QID Additional orders as above Code status: full code
[2017-08-21] MEDS: Levofloxacin/Dextrose 5%-Water 500 MG in Premix Bag 1 BAG IV SCH ×3 (09:03→21:33)
[2017-08-21] MEDS: Dextrose 5%-0.9% NaCl with KCl 1,000 ML IV SCH (09:03)
[2017-08-21] MEDS: Saccharomyces Boulardii (Probiotic) 250 MG Cap PO SCH ×2 (09:06→21:33)
[2017-08-21] MEDS: Enoxaparin 40 MG/0.4 ML Syringe SUBCUT SCH (09:06)
[2017-08-21] MEDS: Nicotine 21 MG/24 Hr Patch TRDERM SCH (09:07)
[2017-08-21] MEDS ORDERED: FLU Vacc QS 2017-18 (6mos UP)/PF 60 MCG/0.5 ML Syringe IM ONE (10:00)
[2017-08-21] MEDS ORDERED: Magnesium Oxide 400 MG Tab PO ONE (13:00)
--- NOTE | 2017-08-22 00:10 | PCM.PN ---
- General Info Date of Service: 08/22/17 Admission Dx/Problem (Free Text): Acute Diverticulitis Subjective Update: Follow Up Functional Status: Reports: Pain Controlled, Tolerating Diet, Ambulating, Urinating. Denies: New Symptoms - Review of Systems General: Denies: Fever, Weakness, Fatigue, Malaise, Chills HEENT: Reports: No Symptoms Pulmonary: Denies: Shortness of Breath Cardiovascular: Denies: Chest Pain Gastrointestinal: Reports: Flatus. Denies: Abdominal Pain, Constipation, Decreased Appetite, Diarrhea, Difficulty Swallowing, Nausea, Vomiting Genitourinary: Reports: No Symptoms Musculoskeletal: Reports: No Symptoms Skin: Denies: Pallor, Diaphoresis, Rash Neurological: Denies: Confusion, Difficulty Walking, Weakness, Gait Disturbance Psychiatric: Denies: Depression, Anxiety, Agitation, Hallucinations Systems Review Comment:: No overnight or acute issues. He doing relatively well. He is tolerating current diet. His pain remains controlled. He had a small regular bowel movement this morning. He is afebrile with mild leukocytosis. He has no new complaints this morning. - Patient Data Vitals - Most Recent: Last Vital Signs Temp 36.8 C 08/21/17 23:23 Pulse 62 08/21/17 23:23 Resp 16 08/21/17 23:23 BP 115/74 08/21/17 23:24 Pulse Ox 98 08/21/17 23:23 Weight - Most Recent: 143.653 kg I&O - Last 24 Hours: Intake & Output 08/21/17 08/21/17 08/22/17 14:59 22:59 06:59 Intake Total 2015 Output Total 800 Balance 1215 Lab Results Last 24 Hours: Laboratory Results - last 24 hr 08/21/17 08/21/17 Range/Units 05:38 05:38 WBC 10.91 H (4.23-9.07) K/mm3 RBC 4.50 L (4.63-6.08) M/mm3 Hgb 12.2 L (13.7-17.5) gm/L Hct 37.2 L (40.1-51.0) % MCV 82.7 (79.0-92.2) fl MCH 27.1 (25.7-32.2) pg MCHC 32.8 (32.2-35.5) g/dl RDW Std Deviation 39.6 (35.1-43.9) fL Plt Count 236 (163-337) K/mm3 MPV 11.1 (9.4-12.3) fl Neut % (Auto) 63.7 (34.0-67.9) % Lymph % (Auto) 25.9 (21.8-53.1) % [place] % (Auto) 9.0 (5.3-12.2) % Eos % (Auto) 0.9 (0.8-7.0) Baso % (Auto) 0.2 (0.1-1.2) % Neut # (Auto) 6.95 H (1.78-5.38) K/mm3 Lymph # (Auto) 2.83 (1.32-3.57) K/mm3 [place] # (Auto) 0.98 H (0.30-0.82) K/mm3 Eos # (Auto) 0.10 (0.04-0.54) K/mm3 Baso # (Auto) 0.02 (0.01-0.08) K/mm3 Sodium 143 (136-145) mEq/L Potassium 3.7 (3.5-5.1) mEq/L Chloride 109 H (98-107) mEq/L Carbon Dioxide 26 (21-32) mEq/L Anion Gap 11.7 (5-15) BUN 7 (7-18) mg/dL Creatinine 0.8 (0.7-1.3) mg/dL Est Cr Clr Drug Dosing 151.20 mL/min Estimated GFR (MDRD) > 60 (>60) mL/min BUN/Creatinine Ratio 8.8 L (14-18) Glucose 104 (74-106) mg/dL Calcium 8.2 L (8.5-10.1) mg/dL Magnesium 1.9 (1.8-2.4) mg/dl C-Reactive Protein 2.1 H* (<1.0) mg/dL Med Orders - Current: Current Medications Acetaminophen (Tylenol) 650 mg PO Q4H PRN PRN Reason: Pain (Mild 1-3)/fever Albuterol/Ipratropium (Duoneb 3.0-0.5 Mg/3 Ml) 3 ml NEB Q4H PRN PRN Reason: Shortness Of Breath/wheezing Bisacodyl (Dulcolax) 5 mg PO DAILY PRN PRN Reason: Constipation Enoxaparin Sodium (Lovenox) 40 mg SUBCUT DAILY [facility] Last Admin: 08/21/17 09:06 Dose: 40 mg Hydralazine HCl (Apresoline) 20 mg IVPUSH Q4H PRN PRN Reason: Hypertension Hydromorphone HCl (Dilaudid) 1 mg IVPUSH Q6H PRN PRN Reason: Pain (severe 7-10) Last Admin: 08/21/17 04:28 Dose: 1 mg Promethazine HCl 12.5 mg/ (Sodium Chloride) 50.5 mls @ 100 mls/hr IV Q6H PRN PRN Reason: Nausea/Vomiting Metronidazole 500 mg/ Premix 100 mls @ 100 mls/hr IV Q8H [facility] Last Admin: 08/21/17 21:33 Dose: 100 mls/hr Levofloxacin/Dextrose 500 mg/ (Premix) 100 mls @ 100 mls/hr IV Q24H [facility] Last Admin: 08/21/17 21:33 Dose: 100 mls/hr Lorazepam (Ativan) 1 mg IV Q6H PRN PRN Reason: Anxiety Lorazepam (Ativan) 2 mg IVPUSH Q4H PRN PRN Reason: Seizures Magnesium Hydroxide (Milk Of Magnesia) 30 ml PO Q12H PRN PRN Reason: Constipation Magnesium Sulfate (Pharmacy To Dose - Magnesium Replacement) 1 dose .XX ASDIRECTED [facility] Metoprolol Tartrate (Lopressor) 5 mg IVPUSH Q4H PRN PRN Reason: Tachycardia Miscellaneous Information (Remove Patch) 1 ea TRDERM DAILY [facility] Last Admin: 08/21/17 09:07 Dose: Not Given Nicotine (Habitrol) 21 mg TRDERM DAILY [facility] Last Admin: 08/21/17 09:07 Dose: Not Given Ondansetron HCl (Zofran) 4 mg IV Q4H PRN PRN Reason: Nausea/Vomiting Oxycodone HCl (Oxycodone) 5 mg PO Q4H PRN PRN Reason: Pain (moderate 4-6) Last Admin: 08/21/17 22:38 Dose: 5 mg Polyethylene Glycol (Miralax) 17 gm PO DAILY PRN PRN Reason: Constipation Potassium Chloride (Pharmacy To Dose - Potassium Replacement) 1 dose .XX ASDIRECTED [facility] Saccharomyces Boulardii (Florastor) 250 mg PO BID [facility] Last Admin: 08/21/17 21:33 Dose: 250 mg Scopolamine (Scopolamine) 1 each TRDERM Q72H PRN PRN Reason: Nausea/Vomiting Senna/Docusate Sodium (Senna Plus) 1 tab PO BID PRN PRN Reason: Constipation Last Admin: 08/21/17 22:38 Dose: 1 tab Temazepam (Restoril) 30 mg PO BEDTIME PRN PRN Reason: Sleep Discontinued Medications Hydromorphone HCl (Dilaudid) 0.5 mg IVPUSH ONETIME ONE Stop: 08/20/17 21:30 Last Admin: 08/20/17 21:49 Dose: 0.5 mg Sodium Chloride (Normal Saline) 1,000 mls @ 999 mls/hr IV ONETIME ONE Stop: 08/20/17 20:27 Last Admin: 08/20/17 19:31 Dose: 999 mls/hr Sodium Chloride (Normal Saline) 1,000 mls @ 999 mls/hr IV ONETIME ONE Stop: 08/20/17 21:59 Last Admin: 08/20/17 21:03 Dose: 999 mls/hr Levofloxacin/Dextrose 750 mg/ (Premix) 150 mls @ 100 mls/hr IV ONETIME ONE Stop: 08/20/17 22:53 Last Admin: 08/20/17 21:51 Dose: 100 mls/hr Metronidazole 500 mg/ Premix 100 mls @ 100 mls/hr IV ONETIME ONE Stop: 08/20/17 22:23 Last Admin: 08/20/17 21:45 Dose: 100 mls/hr Potassium Chloride/Dextrose/Sod Cl (D5 Ns With 20 Meq Kcl) 1,000 mls @ 125 mls/ hr IV ASDIRECTED [facility] Last Admin: 08/21/17 09:03 Dose: 125 mls/hr Levofloxacin/Dextrose 500 mg/ (Premix) 100 mls @ 100 mls/hr IV Q24H [facility] Last Admin: 08/21/17 09:10 Dose: Not Given Potassium Chloride (Kcl 10 Meq In Water 100 Ml) 100 mls @ 100 mls/hr IV Q1H [facility] Stop: 08/21/17 04:59 Last Admin: 08/21/17 04:17 Dose: 100 mls/hr Influenza Virus Vaccine (Pharmacy To Dose - Influenza Vaccine) 1 each IM ONETIME ONE Stop: 08/21/17 01:26 Influenza Virus Vaccine (Flulaval Quad [id number]) 60 mcg IM .ONCE ONE Stop: 08/21/17 10:01 Magnesium Oxide (Magnesium Oxide) 400 mg PO ONETIME ONE Stop: 08/21/17 13:01 Last Admin: 08/21/17 13:21 Dose: 400 mg Ondansetron HCl (Zofran) 4 mg IVPUSH ONETIME STA Stop: 08/20/17 20:59 Last Admin: 08/20/17 21:06 Dose: 4 mg Pantoprazole Sodium (Protonix Iv) 40 mg .XX ONETIME ONE Stop: 08/20/17 22:39 Last Admin: 08/20/17 23:48 Dose: 40 mg - Exam General: Alert, Oriented, Cooperative, No Acute Distress, Mild Distress, Other ( Morbidly Obese) HEENT: Pupils Equal, Pupils Reactive, EOMI, Mucous Membr. Moist/[place] Neck: Supple, Trachea Midline, No JVD, No Thyromegaly Lungs: Clear to Auscultation, Normal Respiratory Effort Cardiovascular: Regular Rate, Regular Rhythm GI/Abdominal Exam: Normal Bowel Sounds, Soft, Non-Tender, No Organomegaly, No Distention, No Abnormal Bruit, No Mass, Other (Abdominal striae and multiple tiny round-like lesions). No: Distended, Guarding, Rigid, Rebound (Male) Exam: Deferred Back Exam: Normal Inspection, Decreased Range of Motion Extremities: Normal Inspection, No Pedal Edema Peripheral Pulses: 3+: Posterior Tibial (L), Posterior Tibial (R), Dorsalis Pedis (L), Dorsalis Pedis (R) Skin: Warm, Dry, Intact Neurological: No New Focal Deficit Psy/Mental Status: Alert, Normal Affect, Normal Mood - Problem List Review Problem List Initiated/Reviewed/Updated: Yes - My Orders Last 24 Hours: My Active Orders 08/21/17 09:00 Remove Patch 1 ea TRDERM DAILY 08/21/17 22:00 Levofloxacin/Dextrose 5%-Water [Levaquin in D5W 500 MG/100 ML] 500 mg Premix Bag 1 bag IV Q24H 08/21/17 Dinner Full Liquid Diet [DIET] 08/22/17 Breakfast Regular Diet [DIET] - Plan Plan:: I/P: Acute: Diverticulitis, Improving -Hx/o diverticulits 4 years ago -No Hx/o IBD or auto-immune disease -Failed outpatient treatment; seen in ED a couple of days ago -Came back for no improvement of symptoms -Remains Afebrile w/ mild leukocytosis -CT scan 08/08/2017: sigmoid colon diverticulitis -WBC 13.72--> 10.91--> 10.09, CRP 3.3--> 2.1--> 0.9 -No reports of colonoscopy in the past -Continue Levaquin 500 mg IV Q24hr and Flagyl 500 mg IV Q6 with Probiotic -Advance diet and Ambulate as tolerated -IV fluids, Pain medications, and Anti-emetics for symptomatic control Air fluid In the Bladder on Recent CT scan -Query Cysto-sigmoid fistula -He carries no hx/o IBD -ED note states CT Cystogram was negative Chronic: Back Pain Substance Abuse (Marijuana) Hx/o Gallstones Hx/o Diverticulosis Hx/o H. Pylori Infection Obesity with BMI of 42.2 Plan: He remains clinically stable Continue current treatment Routine AM Labs DVT/PE prophylaxis: Lovenox CM for discharge planning Encourage to ambulated as tolerated QID Additional orders as above Code status: full code Possible d/c in AM
[2017-08-22] MEDS: metroNIDAZOLE/Normal Saline 500 MG in Premix Bag 1 BAG IV SCH ×3 (06:14→21:48)
--- NOTE | 2017-08-22 08:59 | CR ---
Abdomen: Supine and upright views of the abdomen were obtained. Comparison: No prior abdominal x-ray, previous CT abdomen and pelvis exam of 08/18/17. Bowel gas pattern appears normal. No free air is identified. Difficult to exclude continuing air within the bladder. Bony structures are unremarkable. Impression: 1. Difficult to exclude continuing air within the bladder which was seen on prior CT exam. 2. Other portions of the two-view abdominal x-ray are within normal limits. Diagnostic code #3
[2017-08-22] MEDS ORDERED: Magnesium Oxide 400 MG Tab PO ONE (10:00)
[2017-08-22] MEDS: Saccharomyces Boulardii (Probiotic) 250 MG Cap PO SCH ×2 (10:22→21:48)
[2017-08-22] MEDS: Potassium Chloride 20 MEQ Tab.ER PO SCH ×2 (10:23→14:47)
[2017-08-22] MEDS: Enoxaparin 40 MG/0.4 ML Syringe SUBCUT SCH (10:24)
[2017-08-22] MEDS: Nicotine 21 MG/24 Hr Patch TRDERM SCH (14:52)
[2017-08-22] MEDS: Levofloxacin/Dextrose 5%-Water 500 MG in Premix Bag 1 BAG IV SCH (21:57)
[2017-08-23] MEDS: metroNIDAZOLE/Normal Saline 500 MG in Premix Bag 1 BAG IV SCH (05:27)
--- NOTE | 2017-08-23 06:37 | PCM.DCSUM1 ---
Discharge Summary - Hospital Course Free Text/Narrative:: This is a 31 yo male with past medical hx/o diverticulosis, H. pylori infection, chronic back pain, and morbid obesity with a BMI of 42 who comes in with complaints of worsening abdominal pain. Patient was initially evaluated in the emergency department a couple of days ago and he was diagnosed with sigmoid diverticulitis. He was discharged with oral Levaquin and Flagyl along with Percocet for pain control. Unfortunately his symptom did not improve. Patient has not been able to keep anything down including his medications. He reports increasing left lower quadrant and mid lower abdominal pain which prompted him to come back for further evaluation. His last bowel movement was 2 days ago. He reports associated nausea and vomiting. He denies any signs of systemic infections but admits to some chills. His initial workup in the emergency department shows a CBC remarkable for WBC of 13.72, neutrophils of 87.2%, lymphocytes of 8.7%, and monocytes of 2.5%. His chemistry is remarkable for glucose of 107, ALT of 11, CRP of 3.8, and albumin of 3.3. His lactic acid is 0.7. Patient is being admitted for medical management of acute diverticulitis. He is full code. - Discharge Data Discharge Date: 08/23/17 (admit date 08/20/17) Discharge Disposition: Home, Self-Care 01 Condition: Good - Discharge Diagnosis/Problem(s) (1) Diverticulitis large intestine SNOMED Code(s): 5013280 ICD Code: K57.32 - DVTRCLI OF LG INT W/O PERFORATION OR ABSCESS W/O BLEEDING Status: Acute Priority: High Current Visit: Yes Qualifiers: Diverticulitis bleeding: without bleeding Diverticulitis complication: without perforation or abscess Qualified Code(s): K57.32 - Diverticulitis of large intestine without perforation or abscess without bleeding (2) Nausea and vomiting SNOMED Code(s): 32504567 ICD Code: R11.2 - NAUSEA WITH VOMITING, UNSPECIFIED Status: Resolved Priority: High Current Visit: Yes Qualifiers: Vomiting type: unspecified Vomiting Intractability: non-intractable Qualified Code(s): R11.2 - Nausea with vomiting, unspecified (3) Abdominal pain, left lower quadrant SNOMED Code(s): 839333131 ICD Code: R10.32 - LEFT LOWER QUADRANT PAIN Status: Resolved Priority: High Current Visit: Yes - Patient Summary/Data Operative Procedure(s) Performed: None Complications: None Consults: None Labs Pending at D/C: None Recommended Follow-up Testing/Procedures: Follow up with Primary Care Provider within one week of discharge [place] foods for the next week then slowly advance diet as tolerated Push fluids Avoid alcohol Avoid heavy lifting, pushing, pulling, carrying for the next 2 weeks- nothing over 20lbs Call or return to hospital if ?'s or concerns Planned Operative Procedure(s) after DC: None Hospital Course: I/P: Acute: Diverticulitis, Improving -Hx/o diverticulits 4 years ago -No Hx/o IBD or auto-immune disease -Failed outpatient treatment; seen in ED a couple of days ago -Came back for no improvement of symptoms -Remains Afebrile w/ mild leukocytosis -CT scan 08/08/2017: sigmoid colon diverticulitis -WBC 13.72--> 10.91--> 10.09, CRP 3.3--> 2.1--> 0.9 -No reports of colonoscopy in the past --- recommend consider and discuss with PCP at follow up visit -Continue Levaquin 500 mg IV Q24hr and Flagyl 500 mg IV Q6 with Probiotic; cont PO abx Levaquin and Flagyl at DC x 7 days -Advance diet and Ambulate as tolerated -IV fluids, Pain medications, and Anti-emetics for symptomatic control Air fluid In the Bladder on Recent CT scan -Query Cysto-sigmoid fistula -He carries no hx/o IBD -ED note states CT Cystogram was negative Chronic: Back Pain Substance Abuse (Marijuana) Hx/o Gallstones Hx/o Diverticulosis Hx/o H. Pylori Infection Obesity with BMI of 42.2 Tobacco use disorder: Smoking cessation education given, patient declined nicotine patch during his stay, declines patch or assistance on discharge as well. Plan: He remains clinically stable Continue current treatment Routine AM Labs DVT/PE prophylaxis: Lovenox CM for discharge planning---DC home today. Encourage to ambulated as tolerated QID Additional orders as above Code status: full code - Patient Instructions Diet: Drink 8-10+ Glasses/Day, GI Soft/Low Residue/Low Fiber Activity: No Lifting Over 20 Pounds (as noted above) Driving: Do Not Drive (if taking narcotic pain medications) Showering/Bathing: November Shower Notify Provider of: Fever, Increased Pain, Nausea and/or Vomiting - Discharge Plan Prescriptions/Med Rec: Bifidobacter. Bifidum/B.Longum [Florajen Bifidoblend] 460 mg PO DAILY #30 capsule Lactobac #2-S. Therm-Bifido #1 [Visbiome 900 Billion Packet] 1 each PO BID #40 packet Levofloxacin [Levaquin] 500 mg PO DAILY #7 tab Home Medications: Home Meds Acetaminophen/oxyCODONE [Percocet 325-5 MG] 1 tab PO Q4HR PRN #20 tab 08/18/17 [ Rx] Bifidobacter. Bifidum/B.Longum [Florajen Bifidoblend] 460 mg PO DAILY #30 capsule 08/23/17 [Rx] Lactobac #2-S. Therm-Bifido #1 [Visbiome 900 Billion Packet] 1 each PO BID #40 packet 08/23/17 [Rx] Levofloxacin [Levaquin] 500 mg PO DAILY #7 tab 08/23/17 [Rx] metroNIDAZOLE [Flagyl] 500 mg PO Q8H #29 tab 08/23/17 [Rx] Patient Handouts: Smoking Cessation, Tips for Success, [id number], Diverticulitis, Low-Fiber Diet Referrals: Misha Soares DO [Primary Care Provider] - (Follow-up with primary doctor and ask about having a TDaP vaccine. Please call and make own appointment for in 1 week.) - Discharge Summary/Plan Comment DC Time >30 min.: Yes (40) - General Info Date of Service: 08/23/17 Admission Dx/Problem (Free Text: Acute Diverticulitis Functional Status: Reports: Pain Controlled, Tolerating Diet, Ambulating, Urinating, Incentive Spirometry - Review of Systems General: Reports: No Symptoms, Appetite (good). Denies: Fever HEENT: Reports: No Symptoms Pulmonary: Reports: No Symptoms Cardiovascular: Reports: No Symptoms Gastrointestinal: Reports: No Symptoms. Denies: Abdominal Pain (denies any c/o abd pain this morning), Diarrhea, Nausea, Vomiting Genitourinary: Reports: No Symptoms Musculoskeletal: Reports: No Symptoms Neurological: Reports: No Symptoms - Patient Data Vitals - Most Recent: Last Vital Signs Temp 98.2 F 08/23/17 03:32 Pulse 53 L 02/05/18 03:32 Resp 19 08/23/17 03:32 BP 136/78 08/23/17 03:34 Pulse Ox 94 L 08/23/17 03:32 Weight - Most Recent: 310 lb I&O - Last 24 hours: Intake & Output 08/22/17 08/22/17 08/23/17 14:59 22:59 06:59 Intake Total 120 1120 900 Output Total 400 Balance 120 720 900 Lab Results - Last 24 hrs: Laboratory Results - last 24 hr 08/22/17 08/22/17 08/23/17 Range/Units 05:58 05:58 05:48 WBC 10.09 H 10.42 H (4.23-9.07) K/mm3 RBC 4.80 5.21 (4.63-6.08) M/mm3 Hgb 12.9 L 14.1 (13.7-17.5) gm/L Hct 39.6 L 42.6 (40.1-51.0) % MCV 82.5 81.8 (79.0-92.2) fl MCH 26.9 27.1 (25.7-32.2) pg MCHC 32.6 33.1 (32.2-35.5) g/dl RDW Std Deviation 39.9 39.7 (35.1-43.9) fL Plt Count 261 275 (163-337) K/mm3 MPV 11.1 11.0 (9.4-12.3) fl Neut % (Auto) 61.5 63.0 (34.0-67.9) % Lymph % (Auto) 27.1 24.9 (21.8-53.1) % [place] % (Auto) 8.8 9.5 (5.3-12.2) % Eos % (Auto) 1.9 1.8 (0.8-7.0) Baso % (Auto) 0.2 0.3 (0.1-1.2) % Neut # (Auto) 6.21 H 6.57 H (1.78-5.38) K/mm3 Lymph # (Auto) 2.73 2.59 (1.32-3.57) K/mm3 [place] # (Auto) 0.89 H 0.99 H (0.30-0.82) K/mm3 Eos # (Auto) 0.19 0.19 (0.04-0.54) K/mm3 Baso # (Auto) 0.02 0.03 (0.01-0.08) K/mm3 Sodium 142 (136-145) mEq/L Potassium 3.7 (3.5-5.1) mEq/L Chloride 108 H (98-107) mEq/L Carbon Dioxide 28 (21-32) mEq/L Anion Gap 9.7 (5-15) BUN 5 L (7-18) mg/dL Creatinine 0.8 (0.7-1.3) mg/dL Est Cr Clr Drug Dosing 151.20 mL/min Estimated GFR (MDRD) > 60 (>60) mL/min BUN/Creatinine Ratio 6.3 L (14-18) Glucose 91 (74-106) mg/dL Calcium 8.8 (8.5-10.1) mg/dL Magnesium 1.8 (1.8-2.4) mg/dl C-Reactive Protein 0.9 (<1.0) mg/dL Med Orders - Current: Current Medications Acetaminophen (Tylenol) 650 mg PO Q4H PRN PRN Reason: Pain (Mild 1-3)/fever Albuterol/Ipratropium (Duoneb 3.0-0.5 Mg/3 Ml) 3 ml NEB Q4H PRN PRN Reason: Shortness Of Breath/wheezing Bisacodyl (Dulcolax) 5 mg PO DAILY PRN PRN Reason: Constipation Enoxaparin Sodium (Lovenox) 40 mg SUBCUT DAILY [facility] Last Admin: 08/22/17 10:24 Dose: 40 mg Hydralazine HCl (Apresoline) 20 mg IVPUSH Q4H PRN PRN Reason: Hypertension Hydromorphone HCl (Dilaudid) 1 mg IVPUSH Q6H PRN PRN Reason: Pain (severe 7-10) Last Admin: 08/21/17 04:28 Dose: 1 mg Promethazine HCl 12.5 mg/ (Sodium Chloride) 50.5 mls @ 100 mls/hr IV Q6H PRN PRN Reason: Nausea/Vomiting Metronidazole 500 mg/ Premix 100 mls @ 100 mls/hr IV Q8H [facility] Last Admin: 08/23/17 05:27 Dose: 100 mls/hr Levofloxacin/Dextrose 500 mg/ (Premix) 100 mls @ 100 mls/hr IV Q24H [facility] Last Admin: 08/22/17 21:57 Dose: 100 mls/hr Lorazepam (Ativan) 1 mg IV Q6H PRN PRN Reason: Anxiety Lorazepam (Ativan) 2 mg IVPUSH Q4H PRN PRN Reason: Seizures Magnesium Hydroxide (Milk Of Magnesia) 30 ml PO Q12H PRN PRN Reason: Constipation Magnesium Sulfate (Pharmacy To Dose - Magnesium Replacement) 1 dose .XX ASDIRECTED [facility] Metoprolol Tartrate (Lopressor) 5 mg IVPUSH Q4H PRN PRN Reason: Tachycardia Miscellaneous Information (Remove Patch) 1 ea TRDERM DAILY [facility] Last Admin: 08/22/17 14:52 Dose: Not Given Nicotine (Habitrol) 21 mg TRDERM DAILY [facility] Last Admin: 08/22/17 14:52 Dose: Not Given Ondansetron HCl (Zofran) 4 mg IV Q4H PRN PRN Reason: Nausea/Vomiting Oxycodone HCl (Oxycodone) 5 mg PO Q4H PRN PRN Reason: Pain (moderate 4-6) Last Admin: 08/21/17 22:38 Dose: 5 mg Polyethylene Glycol (Miralax) 17 gm PO DAILY PRN PRN Reason: Constipation Potassium Chloride (Pharmacy To Dose - Potassium Replacement) 1 dose .XX ASDIRECTED [facility] Saccharomyces Boulardii (Florastor) 250 mg PO BID [facility] Last Admin: 08/22/17 21:48 Dose: 250 mg Scopolamine (Scopolamine) 1 each TRDERM Q72H PRN PRN Reason: Nausea/Vomiting Senna/Docusate Sodium (Senna Plus) 1 tab PO BID PRN PRN Reason: Constipation Last Admin: 08/21/17 22:38 Dose: 1 tab Temazepam (Restoril) 30 mg PO BEDTIME PRN PRN Reason: Sleep Last Admin: 08/22/17 23:47 Dose: 30 mg Discontinued Medications Hydromorphone HCl (Dilaudid) 0.5 mg IVPUSH ONETIME ONE Stop: 08/20/17 21:30 Last Admin: 08/20/17 21:49 Dose: 0.5 mg Sodium Chloride (Normal Saline) 1,000 mls @ 999 mls/hr IV ONETIME ONE Stop: 08/20/17 20:27 Last Admin: 08/20/17 19:31 Dose: 999 mls/hr Sodium Chloride (Normal Saline) 1,000 mls @ 999 mls/hr IV ONETIME ONE Stop: 08/20/17 21:59 Last Admin: 08/20/17 21:03 Dose: 999 mls/hr Levofloxacin/Dextrose 750 mg/ (Premix) 150 mls @ 100 mls/hr IV ONETIME ONE Stop: 08/20/17 22:53 Last Admin: 08/20/17 21:51 Dose: 100 mls/hr Metronidazole 500 mg/ Premix 100 mls @ 100 mls/hr IV ONETIME ONE Stop: 08/20/17 22:23 Last Admin: 08/20/17 21:45 Dose: 100 mls/hr Potassium Chloride/Dextrose/Sod Cl (D5 Ns With 20 Meq Kcl) 1,000 mls @ 125 mls/ hr IV ASDIRECTED [facility] Last Admin: 08/21/17 09:03 Dose: 125 mls/hr Levofloxacin/Dextrose 500 mg/ (Premix) 100 mls @ 100 mls/hr IV Q24H [facility] Last Admin: 08/21/17 09:10 Dose: Not Given Potassium Chloride (Kcl 10 Meq In Water 100 Ml) 100 mls @ 100 mls/hr IV Q1H [facility] Stop: 08/21/17 04:59 Last Admin: 08/21/17 04:17 Dose: 100 mls/hr Influenza Virus Vaccine (Pharmacy To Dose - Influenza Vaccine) 1 each IM ONETIME ONE Stop: 08/21/17 01:26 Influenza Virus Vaccine (Flulaval Quad [id number]) 60 mcg IM .ONCE ONE Stop: 08/21/17 10:01 Magnesium Oxide (Magnesium Oxide) 400 mg PO ONETIME ONE Stop: 08/21/17 13:01 Last Admin: 08/21/17 13:21 Dose: 400 mg Magnesium Oxide (Magnesium Oxide) 400 mg PO ONETIME ONE Stop: 08/22/17 10:01 Last Admin: 08/22/17 10:23 Dose: 400 mg Ondansetron HCl (Zofran) 4 mg IVPUSH ONETIME STA Stop: 08/20/17 20:59 Last Admin: 08/20/17 21:06 Dose: 4 mg Pantoprazole Sodium (Protonix Iv) 40 mg .XX ONETIME ONE Stop: 08/20/17 22:39 Last Admin: 08/20/17 23:48 Dose: 40 mg Potassium Chloride (Klor-Con M20) 40 meq PO Q4H [place] Stop: 08/22/17 14:01 Last Admin: 08/22/17 14:47 Dose: 40 meq - Exam Quality Assessment: Reports: DVT Prophylaxis General: Reports: Alert, Oriented, Cooperative, No Acute Distress HEENT: Reports: Pupils Equal, Pupils Reactive, EOMI, Mucous Membr. Moist/[place] Neck: Reports: Supple Lungs: Reports: Clear to Auscultation, Normal Respiratory Effort, Decreased Breath Sounds (bases) Cardiovascular: Reports: Regular Rate, Regular Rhythm GI/Abdominal Exam: Normal Bowel Sounds, Soft, Non-Tender, No Organomegaly, No Distention (Male) Exam: Deferred Rectal (Males) Exam: Deferred Back Exam: Reports: Normal Inspection Extremities: No Pedal Edema, Normal Capillary Refill Neurological: Reports: No New Focal Deficit Psy/Mental Status: Reports: Alert, Normal Affect, Normal Mood *Q Meaningful Use (DIS) - VTE *Q VTE Criteria *Q: - Stroke *Q Stroke Criteria *Q: - AMI *Q AMI Criteria *Q:
[2017-08-23] MEDS: Enoxaparin 40 MG/0.4 ML Syringe SUBCUT SCH (08:15)
[2017-08-23] MEDS: Saccharomyces Boulardii (Probiotic) 250 MG Cap PO SCH (08:15)
[2017-08-23] MEDS: Nicotine 21 MG/24 Hr Patch TRDERM SCH (08:15)
[2017-08-23 10:36] VITALS: BP 131/95
== END 2017-08-23 11:07 | disposition home or self-care (01) | DRG 392 ==
LOC: JD.ED 18:14 → JD.MS 22:57
PROVIDERS: ADMIT Internal Medicine; ATTEND Internal Medicine
DX: K57.32 Diverticulitis of large intestine without perforation or abscess without bleeding (principal); Z68.41 Body mass index [BMI] 40.0-44.9, adult; G89.29 Other chronic pain; M54.9 Dorsalgia, unspecified; E66.01 Morbid (severe) obesity due to excess calories; F17.210 Nicotine dependence, cigarettes, uncomplicated; F12.90 Cannabis use, unspecified, uncomplicated; R94.8 Abnormal results of function studies of other organs and systems; R11.2 Nausea with vomiting, unspecified
CPT/HCPCS: 36415; 74019; 74019-26; 80048; 80053; 83605; 83735; 85025; 86140; 87040; 96361; 96365; 96375; 99285-25; A9270-GY; C9113; J1170; J1650; J1956; J2405; J3480; J7040

== ENCOUNTER 2017-09-14 18:01 | Emergency (ER) | payer OTHER ==
[2017-09-14 18:10] VITALS: BP 119/67
[2017-09-14] MEDS ORDERED: Sodium Chloride 0.9% 1,000 ML IV ONE (18:43)
[2017-09-14] MEDS ORDERED: Sodium Chloride 0.9% 10 ML Syringe FLUSH PRN (18:43)
[2017-09-14] MEDS ORDERED: Pantoprazole 40 MG Vial IVPUSH ONE (19:00)
[2017-09-14] MEDS ORDERED: Sucralfate 1 GM Tab PO ONE (19:00)
[2017-09-14] MEDS ORDERED: Alum Hydrox/Mag Hydrox/Simeth 30 ML, Lidocaine 2% 15 ML PO ONE ×2 (19:00)
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
[2017-09-14] MEDS ORDERED: Sucralfate Suspension 1 GM/10 ML Cup PO ONE (19:12)
--- NOTE | 2017-09-15 08:49 | CR ---
Abdomen: Supine and upright views of the abdomen were obtained. Comparison: Prior supine abdominal x-ray of 08/20/17. Bowel gas pattern is normal. No abnormal calcifications or soft tissue abnormality is seen. No free air is identified. Bowel gas pattern is normal. Impression: 1. Unremarkable two-view abdominal x-ray. Diagnostic code #1
== END 2017-09-14 22:25 | disposition home or self-care (01) ==
LOC: JD.ED 18:01
DX: K21.9 Gastro-esophageal reflux disease without esophagitis (principal); E66.9 Obesity, unspecified; F17.210 Nicotine dependence, cigarettes, uncomplicated
CPT/HCPCS: 36415; 74019; 80053; 81001; 83690; 85025; 85610; 85730; 86140; 96361; 96374; 99285; A9270; C9113; J7040; J7050; 99284

== ENCOUNTER 2017-09-23 17:27 | Emergency (ER) | payer OTHER ==
[2017-09-23 17:35] VITALS: BP 126/79
[2017-09-23] MEDS ORDERED: Ondansetron 4 MG/2 ML SDV IVPUSH ONE (18:15)
[2017-09-23] MEDS ORDERED: Sodium Chloride 0.9% 1,000 ML IV ONE (18:15)
[2017-09-23] MEDS ORDERED: Famotidine 20 MG/2 ML SDV IVPUSH ONE (18:15)
[2017-09-23] MEDS ORDERED: Alum Hydrox/Mag Hydrox/Simeth 30 ML, Lidocaine 2% 15 ML PO ONE ×2 (18:15)
[2017-09-23] MEDS ORDERED: Sodium Chloride 0.9% 10 ML Syringe FLUSH PRN (18:15)
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
[2017-09-23] MEDS ORDERED: Levofloxacin 250 MG Tab PO ONE (20:02)
[2017-09-23] MEDS ORDERED: metroNIDAZOLE 500 MG Tab PO ONE (20:02)
[2017-09-23] MEDS ORDERED: HYDROmorphone 0.5 MG/0.5 ML SYRINGE IVPUSH ONE (20:40)
--- NOTE | 2017-09-24 06:51 | CR ---
Abdomen: Supine and upright views of the abdomen were obtained. Comparison: Prior abdominal x-ray of 09/14/17. Bowel gas pattern is normal. No abnormal calcifications or soft tissue abnormality is seen. Bony structures are unremarkable. Impression: 1. No abnormality is seen on two-view abdominal x-ray. Diagnostic code #1
== END 2017-09-23 20:58 | disposition home or self-care (01) ==
LOC: JD.ED 17:27
DX: K57.92 Diverticulitis of intestine, part unspecified, without perforation or abscess without bleeding (principal); F17.210 Nicotine dependence, cigarettes, uncomplicated; Z79.899 Other long term (current) drug therapy
CPT/HCPCS: 36415; 74019; 80053; 83690; 85025; 86140; 96361; 96374; 96375; 99285; A9270; J1170; J2405; J7040; J7050; 99284

== ENCOUNTER 2017-11-20 11:07 | Emergency (ER) | payer OTHER ==
[2017-11-20 11:15] VITALS: BP 152/108
[2017-11-20] MEDS ORDERED: Sodium Chloride 0.9% 1,000 ML IV ONE (11:19)
[2017-11-20] MEDS ORDERED: Pantoprazole 40 MG Vial IVPUSH ONE (11:19)
[2017-11-20] MEDS ORDERED: Ondansetron 4 MG/2 ML SDV IVPUSH ONE (11:19)
[2017-11-20] MEDS ORDERED: HYDROmorphone 0.5 MG/0.5 ML SYRINGE IVPUSH ONE (11:20)
[2017-11-20] MEDS ORDERED: Alum Hydrox/Mag Hydrox/Simeth 30 ML, Lidocaine 2% 15 ML PO ONE ×2 (11:20)
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
[2017-11-20] MEDS ORDERED: Magnesium Sulfate/Water 2 GM in Premix Bag 1 BAG IV ONE (12:25)
[2017-11-20] MEDS ORDERED: Sodium Chloride 0.9% 10 ML Syringe FLUSH ONE (13:38)
[2017-11-20] MEDS ORDERED: Iopamidol 612 MG/ML 150 ML Bottle IVPUSH ONE (13:38)
[2017-11-20] MEDS ORDERED: Diatrizoate Meglumine/Diatrizoate Sodium 37% 120 ML Bottle PO ONE (13:38)
[2017-11-20] MEDS ORDERED: Piperacillin/Tazobactam 4.5 GM in Sodium Chloride 0.9% 100 ML IV ONE (14:38)
--- NOTE | 2017-11-21 07:55 | CT ---
CT abdomen and pelvis Technique: Multiple axial sections were obtained from above the dome of the diaphragm inferiorly through the pubic symphysis. Intravenous and oral contrast was utilized. Delayed images were also obtained through the bladder. Comparison: Prior CT abdomen and pelvis exam performed on 08/18/17. Findings: Bowel wall thickening is seen within the sigmoid colon. Diverticulosis is noted within the sigmoid colon. Inflammatory change and contrast filled abscess cavity is seen off the colon. These findings have slightly worsened from previous exam. Soft tissue density extends to the bladder with air within the bladder which is felt compatible with fistula between the sigmoid colon and bladder. There may be also a fistula between two portions of the sigmoid colon. The abscess cavity measures up to 4.7 cm. Visualized lung bases show nothing acute. Liver shows no focal parenchymal abnormality. Several very small low density areas are seen within the gallbladder presumably due to small cholesterol gallstones. Spleen appears within normal limits. Adrenal glands show no nodule. Pancreas is within normal limits. Kidneys show symmetric contrast enhancement without hydronephrosis or mass. Aorta shows no aneurysmal dilatation. Appendix is seen which is normal. No pelvic mass or adenopathy is seen. Delayed images show contrast within the distal ureters and bladder. Bone window settings were reviewed which appear within normal limits for the patient's age. Impression: 1. Chronic diverticulitis within the sigmoid colon. Contrast-filled chronic diverticular abscess is seen. Air noted within the bladder with findings suspicious for fistula between sigmoid colon and bladder. Soft tissue density between two portions of the sigmoid colon which may represent an additional fistula. Findings have worsened from prior CT exam. 2. Probable small cholesterol stones within the gallbladder. 3. No additional abnormality is appreciated on CT study of the abdomen and pelvis. Diagnostic code #5 I agree with preliminary report from [facility], finalized at 11/20/17, 3:28 PM Central Time
== END 2017-11-20 15:55 ==
LOC: JD.ED 11:07
DX: K57.32 Diverticulitis of large intestine without perforation or abscess without bleeding (principal); K63.2 Fistula of intestine; L02.211 Cutaneous abscess of abdominal wall; F17.210 Nicotine dependence, cigarettes, uncomplicated
CPT/HCPCS: 36415; 74177; 80053; 80306; 81001; 83735; 84484; 85025; 86140; 86677; 93005; 96361; 96365; 96366; 96367; 96375; 99285; A9270; C9113; J1170; J2405; J2543; J7030; J7040; J7050; Q9963; Q9967; 99284; J3475

== ENCOUNTER 2017-11-28 13:48 | Emergency (ER) | payer OTHER ==
[2017-11-28] MEDS ORDERED: Sodium Chloride 0.9% 1,000 ML IV ONE ×2 (14:09→15:37)
[2017-11-28] MEDS ORDERED: Ondansetron 4 MG/2 ML SDV IVPUSH ONE (14:10)
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
[2017-11-28] MEDS ORDERED: Levofloxacin/Dextrose 5%-Water 750 MG in Premix Bag 1 BAG IV ONE (15:35)
[2017-11-28] MEDS ORDERED: metroNIDAZOLE/Normal Saline 500 MG in Premix Bag 1 BAG IV ONE (15:35)
[2017-11-28] MEDS ORDERED: Metoclopramide 10 MG/2 ML SDV IVPUSH ONE (16:59)
[2017-11-28] MEDS ORDERED: Morphine 2 MG/ML Syringe IVPUSH ONE (16:59)
[2017-11-28 17:35] VITALS: BP 95/50
--- NOTE | 2017-11-29 07:03 | CR ---
Abdomen: Supine and upright views of the abdomen were obtained. Comparison: Prior abdominal x-ray of 09/23/17. Single loop of small bowel gas is identified within the left abdomen. This is felt to be an incidental finding. Bowel gas pattern is otherwise unremarkable. No free air is seen. No abnormal calcifications or soft tissue abnormality is seen. Impression: 1. Single loop of gas-filled small bowel within the left abdomen believed to be incidental. 2. No free air is seen. Diagnostic code #2
== END 2017-11-28 17:15 ==
LOC: JD.ED 13:48
DX: K57.92 Diverticulitis of intestine, part unspecified, without perforation or abscess without bleeding (principal); L02.211 Cutaneous abscess of abdominal wall; K63.2 Fistula of intestine; F17.210 Nicotine dependence, cigarettes, uncomplicated; E66.9 Obesity, unspecified; Z68.39 Body mass index [BMI] 39.0-39.9, adult
CPT/HCPCS: 36415; 74019; 80053; 81001; 83605; 85007; 85027; 86140; 87040; 87086; 96361; 96365; 96367; 96375; 99285; J1956; J2270; J2405; J2765; J7040; 99284

== ENCOUNTER 2018-01-20 09:37 | Emergency (ER) | payer OTHER ==
[2018-01-20] MEDS ORDERED: Sodium Chloride 0.9% 1,000 ML IV STA (10:11)
[2018-01-20] MEDS ORDERED: Sodium Chloride 0.9% 10 ML Syringe FLUSH PRN (10:11)
[2018-01-20] MEDS ORDERED: Ondansetron 4 MG/2 ML SDV IVPUSH ONE ×2 (10:11→12:04)
[2018-01-20] MEDS ORDERED: HYDROmorphone 0.5 MG/0.5 ML SYRINGE IVPUSH ONE ×3 (10:13→13:03)
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
[2018-01-20] MEDS ORDERED: Sodium Chloride 0.9% 10 ML Syringe FLUSH ONE (11:23)
[2018-01-20] MEDS ORDERED: Iopamidol 612 MG/ML 150 ML Bottle IVPUSH ONE (11:23)
[2018-01-20] MEDS ORDERED: Diatrizoate Meglumine/Diatrizoate Sodium 37% 120 ML Bottle PO ONE (11:23)
--- NOTE | 2018-01-20 12:45 | CT ---
CT abdomen and pelvis Technique: Multiple axial sections were obtained from above the dome of the diaphragm inferiorly through the pubic symphysis. Intravenous and oral contrast was utilized. Oral contrast remained within proximal small bowel. Delayed images were obtained through the bladder. Findings: Inflammatory change is seen around a portion of the sigmoid colon. Small air tract is seen extending to the bladder with air being seen within the bladder. Some adjacent wall thickening is seen within the superior bladder. 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 Visualized lung bases show nothing acute. Liver shows no focal parenchymal abnormality. Spleen appears within normal limits. Adrenal glands show no nodule. Surgical clips are seen from prior cholecystectomy. Kidneys show symmetric contrast enhancement without hydronephrosis or mass. Pancreas is within normal limits. Aorta shows no aneurysmal dilatation. No retroperitoneal adenopathy or mesenteric abnormalities are seen. Appendix is seen which appears normal. Delayed images show contrast within the distal ureters and within the bladder. Bone window settings were reviewed which appear within normal limits for the patient's age. Impression: 1. Findings compatible with diverticulitis. 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 Adjacent bladder wall thickening is seen with air seen within the bladder. 2. Other incidental findings. Diagnostic code #5
[2018-01-20 13:21] VITALS: BP 127/63
--- NOTE | 2018-01-21 08:26 | CR ---
Chest: Portable view of the chest was obtained. Comparison: No prior chest x-ray. Heart size and mediastinum are within normal limits for portable technique. Lungs are clear. Bony structures are grossly intact. Impression: 1. Nothing acute is identified on portable chest x-ray. Diagnostic code #1
== END 2018-01-20 13:25 | disposition home or self-care (01) ==
LOC: JD.ED 09:37
DX: K57.32 Diverticulitis of large intestine without perforation or abscess without bleeding (principal); K63.2 Fistula of intestine
CPT/HCPCS: 36415; 71045; 74177; 80053; 81001; 84484; 85025; 93005; 96361; 96374; 96375; 96376; 99285; J1170; J2405; J7040; J7050; Q9963; Q9967

== ENCOUNTER 2018-01-21 11:00 | Emergency (ER) | payer OTHER ==
[2018-01-21 11:24] VITALS: BP 168/114
[2018-01-21] MEDS ORDERED: Ondansetron 4 MG/2 ML SDV IVPUSH ONE (12:16)
[2018-01-21] MEDS ORDERED: Levofloxacin/Dextrose 5%-Water 750 MG in Premix Bag 1 BAG IV ONE (12:16)
[2018-01-21] MEDS ORDERED: Sodium Chloride 0.9% 10 ML Syringe FLUSH PRN (12:16)
[2018-01-21] MEDS ORDERED: HYDROmorphone 0.5 MG/0.5 ML SYRINGE IVPUSH ONE (12:16)
[2018-01-21] MEDS ORDERED: Sodium Chloride 0.9% 1,000 ML IV ONE (12:16)
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
== END 2018-01-21 15:11 | disposition home or self-care (01) ==
LOC: JD.ED 11:00
DX: K57.32 Diverticulitis of large intestine without perforation or abscess without bleeding (principal); Z79.899 Other long term (current) drug therapy
CPT/HCPCS: 36415; 80053; 81001; 85007; 85027; 86140; 87086; 96361; 96365; 96375; 99284; J1170; J1956; J2405; J7040; J7050

== ENCOUNTER 2018-03-01 18:50 | Emergency (ER) | payer OTHER ==
[2018-03-01] MEDS ORDERED: Sulfamethoxazole/Trimethoprim 800-160 MG Tab PO ONE (19:26)
[2018-03-01] MEDS ORDERED: Ketorolac 30 MG/ML SDV IVPUSH STA (19:26)
[2018-03-01] MEDS ORDERED: Ketorolac 60 MG/2 ML SDV IM STA (19:27)
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
[2018-03-01 19:59] VITALS: BP 125/64
== END 2018-03-01 20:05 | disposition home or self-care (01) ==
LOC: JD.ED 18:50
DX: R10.84 Generalized abdominal pain (principal); Z87.891 Personal history of nicotine dependence; Z79.899 Other long term (current) drug therapy
CPT/HCPCS: 96372; 99284; A9270; J1885

== ENCOUNTER 2018-09-24 16:35 | Emergency (ER) | payer OTHER ==
[2018-09-24 17:19] VITALS: BP 143/78
[2018-09-24] MEDS ORDERED: Ketorolac 30 MG/ML SDV IM ONE (18:18)
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
--- NOTE | 2018-09-26 07:38 | CT ---
CT facial bones Technique: Multiple axial sections through the facial bones were obtained. Reconstructed coronal and sagittal images were reviewed. Findings: Alignment of the temporomandibular joints is normal. No mandibular fracture is appreciated. Mildly comminuted fracture is identified within the zygomatic arch on the left side with inward displacement by approximately 9 mm. No additional facial bone fracture is seen. Minimal areas of mucosal thickening noted within the maxillary sinuses which are felt to be incidental. Impression: 1. Left zygomatic arch fracture with inward displacement and mild comminution. 2. No additional facial bone fracture is seen. Diagnostic code #3 I agree with preliminary report from [facility], finalized on 09/24/18, 8:04 PM Central Time
== END 2018-09-24 20:02 | disposition home or self-care (01) ==
LOC: JD.ED 16:35
DX: S02.40FA Zygomatic fracture, left side, initial encounter for closed fracture (principal); E66.9 Obesity, unspecified; Y04.8XXA Assault by other bodily force, initial encounter; Y93.67 Activity, basketball
CPT/HCPCS: 70486; 96374; 99283; J1885

== ENCOUNTER 2019-11-13 10:50 | Emergency (ER) | payer OTHER ==
[2019-11-13 11:02] VITALS: BP 143/86; PULSE 112
[2019-11-13] MEDS ORDERED: Sodium Chloride 0.9% 10 ML Syringe FLUSH PRN (11:20)
[2019-11-13] MEDS ORDERED: Ketorolac 30 MG/ML SDV IVPUSH ONE (11:23)
[2019-11-13] MEDS ORDERED: Doxycycline 100 MG in Sodium Chloride 0.9% 100 ML IV ONE (11:23)
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
== END 2019-11-13 13:00 | disposition home or self-care (01) ==
LOC: JD.ED 10:50
DX: L03.312 Cellulitis of back [any part except buttock and flank] (principal); F17.210 Nicotine dependence, cigarettes, uncomplicated; E66.9 Obesity, unspecified; Z68.1 Body mass index [BMI] 19.9 or less, adult
CPT/HCPCS: 36415; 80053; 83605; 85025; 86140; 87040; 96365; 96375; 99283; J1885; J3490; J7050